=== PATIENT | female | born 1955 | race Caucasian/White ===

== ENCOUNTER 2022-10-27 11:34 | Observation (INO) ==
--- NOTE | 2022-10-27 12:44 | Emergency Department Note ---
History of Present Illness General Chief complaint: Altered Mental Status Stated complaint: STROKE ON 10/23, AMS, BP HIGH Time Seen by Provider: 10/27/22 12:21 Source: patient and family ([id number]-[id number] at bedside) History of Present Illness Provider complaint: Altered mental status 67-year-old female presents emergency department for altered mental status. Patient and nxwumcrv-cz-yhv reports that the patient was seen at [facility] on Monday and discharged with a stroke. She states that she was discharged yesterday. Daughter reports that since yesterday the patient has been having difficulty walking and slurred speech that is worse than when she had her initial stroke. The nslfhxtd-pp-mos also reports that the patient has been having some emotionally labile moments fluctuating between crying and acting like a child to being profusely loving and affectionate. No recent falls. No blood thinners. Home Medications Medication Instructions Recorded Confirmed Type amlodipine 2.5 mg tablet 2.5 mg PO BID 10/27/22 10/27/22 History atorvastatin 40 mg tablet 40 mg PO DAILY 10/27/22 10/27/22 History buspirone 10 mg tablet 10 mg PO BID 10/27/22 10/27/22 History cilostazol 50 mg tablet 100 mg PO BID 10/27/22 10/27/22 History clopidogrel 75 mg tablet (Plavix) 75 mg PO BID 10/27/22 10/27/22 History cyclobenzaprine 10 mg tablet 5 mg PO BID PRN Muscle Spasm 10/27/22 10/27/22 History losartan 50 mg tablet 50 mg PO DAILY 10/27/22 10/27/22 History metformin 1,000 mg tablet 1,000 mg PO BID 10/27/22 10/27/22 History metoprolol tartrate 25 mg tablet 25 mg PO BID 10/27/22 10/27/22 History pantoprazole 40 mg tablet,delayed 40 mg PO BID 10/27/22 10/27/22 History release venlafaxine 37.5 mg 37.5 mg PO DAILY 10/27/22 10/27/22 History capsule,extended release 24 hr Allergies Allergy/AdvReac Type Severity Reaction Status Date / Time Penicillins Allergy from Verified 10/27/22 15:56 childhood Past Med/Surg History Medical History (Updated 10/27/22 @ 16:20 by Conner Mulligan MD) CVA (cerebral vascular accident) HTN (hypertension) Stroke-like symptoms Social History Smoking Status: Former smoker Feels Safe at Home: Yes Physical Exam Vital Signs Vital Signs - 24 hr 10/27/22 11:43 10/27/22 12:03 10/27/22 11:59 Temperature 36.7 C Temperature Source Temporal Artery Scan Pulse Rate 100 H 97 H Pulse Rate [Apical] 93 H Pulse Rhythm [Apical] Regular Respiratory Rate 18 18 Respiratory Effort / Characteristics Non-Labored Spontaneous Non-Labored Spontaneous Respiratory Depth Normal Normal Respiratory Pattern Regular Regular Blood Pressure 140/82 Blood Pressure [Left Arm] 137/83 Blood Pressure Mean 101 Blood Pressure Mean [Left Arm] 101 Blood Pressure Position Sitting Blood Pressure Position [Left Arm] Lying Pulse Oximetry 99 96 Oxygen Delivery Method Room Air Room Air Sepsis Recent Fever Within 48 Hours No Sepsis New/Unexplained Change in Mental Status N/A Sepsis Action Taken by Nursing No Action Required 10/27/22 14:17 Temperature Temperature Source Pulse Rate Pulse Rate [Apical] 78 Pulse Rhythm [Apical] Respiratory Rate 18 Respiratory Effort / Characteristics Non-Labored Spontaneous Respiratory Depth Normal Respiratory Pattern Regular Blood Pressure Blood Pressure [Left Arm] 138/71 Blood Pressure Mean Blood Pressure Mean [Left Arm] 93 Blood Pressure Position Blood Pressure Position [Left Arm] Lying Pulse Oximetry 95 Oxygen Delivery Method Room Air Sepsis Recent Fever Within 48 Hours Sepsis New/Unexplained Change in Mental Status Sepsis Action Taken by Nursing Physical Exam GENERAL: oriented to person, place, and time. appears well-developed and well- nourished. HENT: Exam performed. - Head: Normocephalic and atraumatic. EYES: Conjunctivae and EOM are normal. Right eye exhibits no discharge. Left eye exhibits no discharge. No scleral icterus. NECK: Normal range of motion. Neck supple. No JVD present. CV: Normal rate, regular rhythm, normal heart sounds and intact distal pulses. There is no peripheral edema. Palpable radial pulses bue. PULM/CHEST: Effort normal and breath sounds normal. No respiratory distress. No stridor. no wheezes. no rales. ABD: The abdomen is soft. There is no tenderness. NEURO: Mild dysarthria. Mild left-sided facial droop. SKIN: Skin is warm and dry. He is not diaphoretic. PSYCH: normal mood and affect. Behavior is normal. Judgment and thought content normal. Course Course 1221: The patient was evaluated in room B8. A complete history and physical exam was performed Cardiac monitoring: An order was placed for continuous cardiac monitoring. The monitor shows a rate of 90 with sinus rhythm interpreted by me Upon exiting the room the patient's ruigvfuh-mb-gyb came to me and stated that she is concerned that the patient is not able to take care of herself at home and that she has not been properly taking her medications. The xcqnaxjp-nf-kiw states that her and her are concerned about her wellbeing at home by herself but the other daughters were not as concerned. The ajboqiah-zs-djt states that no neurologist was seen at the [facility] and that they did not do an MRI on her. Records request will be made to get the records from [facility]. 1350: Vital signs stable. Imaging showed no acute intracranial findings. James gann will be admitted to the [facility] team to be evaluated neurology, have possible MRI done, and possible placement given the son and agojpkyh-sk-tha at bedside's concerns. Medical Decision Making Laboratory Data Attestation: I reviewed the patient's lab results. 10/27/22 11:59 10/27/22 12:38 Lab Results 10/27/22 10/27/22 10/27/22 Range/Units 11:59 11:59 11:59 WBC 8.00 (4.8-10.8) K/ul RBC 4.55 (4.20-5.40) M/uL Hgb 15.0 (12.0-16.0) g/dl POC Hgb (12.0-16.0) g/dl Hct 42.4 (37.0-47.0) % POC Hct (37-47) % MCV 93.2 (80.0-100.0) fL MCH 33.0 (25.0-34.0) pg MCHC 35.4 (32.0-36.0) g/dL RDW Std Deviation 43.1 (36.4-46.3) fL RDW Coeff of Sherie 12.6 (11.5-14.5) % Plt Count 359 (130-400) K/uL MPV 9.5 (9.4-12.4) fL Immature Gran % (Auto) 0.4 % Neut % (Auto) 72.5 % Lymph % (Auto) 20.1 % [place] % (Auto) 6.1 % Eos % (Auto) 0.1 % Baso % (Auto) 0.8 % Neut # (Auto) 5.80 (1.40-6.50) K/uL Lymph # (Auto) 1.61 (1.2-3.4) K/uL [place] # (Auto) 0.49 (0.11-0.59) K/uL Eos # (Auto) 0.01 (0-0.50) K/uL Baso # (Auto) 0.06 (0-0.2) K/uL Immature Gran # (Auto) 0.03 (0.01-0.20) K/uL PT 10.4 (9.0-12.0) Seconds INR 0.9 (0.9-1.1) APTT 22.8 (21.0-31.0) Seconds PTT Ratio 0.8 VBG pH (7.36-7.41) VBG pCO2 (38-50) mmHg VBG pO2 mmHg VBG HCO3 mmol/L VBG O2 Saturation % VBG Base Excess mEq/L POC Sodium (135-144) mmol/L POC Potassium (3.3-5.0) mmol/L POC Chloride (101-112) mmol/L POC Total CO2 (24-31) mmol/L POC Anion Gap (16-25) mmol/L POC BUN (7-18) mg/dl POC Creatinine (0.6-1.3) mg/dl POC Glucose (70-99) mg/dl POC Glucose (other) (70-99) mg/dl POC Ioniz Calcium Ham[place] (1.12-1.32) mmol/l Ammonia (18-72) umol/L Troponin I High Sens (0-14) pg/ml Salicylates (3.0-30) mg/dl Acetaminophen < 3 L (10-30) ug/ml SARS-CoV-2, RNA, NAAT (NEGATIVE) 10/27/22 10/27/22 10/27/22 Range/Units 12:03 12:38 13:06 WBC (4.8-10.8) K/ul RBC (4.20-5.40) M/uL Hgb (12.0-16.0) g/dl POC Hgb (12.0-16.0) g/dl Hct (37.0-47.0) % POC Hct (37-47) % MCV (80.0-100.0) fL MCH (25.0-34.0) pg MCHC (32.0-36.0) g/dL RDW Std Deviation (36.4-46.3) fL RDW Coeff of Sherie (11.5-14.5) % Plt Count (130-400) K/uL MPV (9.4-12.4) fL Immature Gran % (Auto) % Neut % (Auto) % Lymph % (Auto) % [place] % (Auto) % Eos % (Auto) % Baso % (Auto) % Neut # (Auto) (1.40-6.50) K/uL Lymph # (Auto) (1.2-3.4) K/uL [place] # (Auto) (0.11-0.59) K/uL Eos # (Auto) (0-0.50) K/uL Baso # (Auto) (0-0.2) K/uL Immature Gran # (Auto) (0.01-0.20) K/uL PT (9.0-12.0) Seconds INR (0.9-1.1) APTT (21.0-31.0) Seconds PTT Ratio VBG pH (7.36-7.41) VBG pCO2 (38-50) mmHg VBG pO2 mmHg VBG HCO3 mmol/L VBG O2 Saturation % VBG Base Excess mEq/L POC Sodium (135-144) mmol/L POC Potassium (3.3-5.0) mmol/L POC Chloride (101-112) mmol/L POC Total CO2 (24-31) mmol/L POC Anion Gap (16-25) mmol/L POC BUN (7-18) mg/dl POC Creatinine (0.6-1.3) mg/dl POC Glucose 207 H (70-99) mg/dl POC Glucose (other) (70-99) mg/dl POC Ioniz Calcium [place] (1.12-1.32) mmol/l Ammonia 40.0 (18-72) umol/L Troponin I High Sens 8.4 (0-14) pg/ml Salicylates (3.0-30) mg/dl Acetaminophen (10-30) ug/ml SARS-CoV-2, RNA, NAAT (NEGATIVE) 10/27/22 10/27/22 10/27/22 Range/Units 13:06 13:49 14:03 WBC (4.8-10.8) K/ul RBC (4.20-5.40) M/uL Hgb (12.0-16.0) g/dl POC Hgb 20.1 H* (12.0-16.0) g/dl Hct (37.0-47.0) % POC Hct 59 H (37-47) % MCV (80.0-100.0) fL MCH (25.0-34.0) pg MCHC (32.0-36.0) g/dL RDW Std Deviation (36.4-46.3) fL RDW Coeff of Sherie (11.5-14.5) % Plt Count (130-400) K/uL MPV (9.4-12.4) fL Immature Gran % (Auto) % Neut % (Auto) % Lymph % (Auto) % [place] % (Auto) % Eos % (Auto) % Baso % (Auto) % Neut # (Auto) (1.40-6.50) K/uL Lymph # (Auto) (1.2-3.4) K/uL [place] # (Auto) (0.11-0.59) K/uL Eos # (Auto) (0-0.50) K/uL Baso # (Auto) (0-0.2) K/uL Immature Gran # (Auto) (0.01-0.20) K/uL PT (9.0-12.0) Seconds INR (0.9-1.1) APTT (21.0-31.0) Seconds PTT Ratio VBG pH 7.42 H (7.36-7.41) VBG pCO2 37 L (38-50) mmHg VBG pO2 52 mmHg VBG HCO3 24 mmol/L VBG O2 Saturation 86.6 % VBG Base Excess -0.2 mEq/L POC Sodium 140 (135-144) mmol/L POC Potassium 3.6 (3.3-5.0) mmol/L POC Chloride 101 (101-112) mmol/L POC Total CO2 21 L (24-31) mmol/L POC Anion Gap 23.0 (16-25) mmol/L POC BUN 10 (7-18) mg/dl POC Creatinine 0.5 L (0.6-1.3) mg/dl POC Glucose (70-99) mg/dl POC Glucose (other) 202 H (70-99) mg/dl POC Ioniz Calcium [place] 1.13 (1.12-1.32) mmol/l Ammonia (18-72) umol/L Troponin I High Sens (0-14) pg/ml Salicylates < 3.0 L (3.0-30) mg/dl Acetaminophen (10-30) ug/ml SARS-CoV-2, RNA, NAAT (NEGATIVE) 10/27/22 Range/Units 14:28 WBC (4.8-10.8) K/ul RBC (4.20-5.40) M/uL Hgb (12.0-16.0) g/dl POC Hgb (12.0-16.0) g/dl Hct (37.0-47.0) % POC Hct (37-47) % MCV (80.0-100.0) fL MCH (25.0-34.0) pg MCHC (32.0-36.0) g/dL RDW Std Deviation (36.4-46.3) fL RDW Coeff of Sherie (11.5-14.5) % Plt Count (130-400) K/uL MPV (9.4-12.4) fL Immature Gran % (Auto) % Neut % (Auto) % Lymph % (Auto) % [place] % (Auto) % Eos % (Auto) % Baso % (Auto) % Neut # (Auto) (1.40-6.50) K/uL Lymph # (Auto) (1.2-3.4) K/uL [place] # (Auto) (0.11-0.59) K/uL Eos # (Auto) (0-0.50) K/uL Baso # (Auto) (0-0.2) K/uL Immature Gran # (Auto) (0.01-0.20) K/uL PT (9.0-12.0) Seconds INR (0.9-1.1) APTT (21.0-31.0) Seconds PTT Ratio VBG pH (7.36-7.41) VBG pCO2 (38-50) mmHg VBG pO2 mmHg VBG HCO3 mmol/L VBG O2 Saturation % VBG Base Excess mEq/L POC Sodium (135-144) mmol/L POC Potassium (3.3-5.0) mmol/L POC Chloride (101-112) mmol/L POC Total CO2 (24-31) mmol/L POC Anion Gap (16-25) mmol/L POC BUN (7-18) mg/dl POC Creatinine (0.6-1.3) mg/dl POC Glucose (70-99) mg/dl POC Glucose (other) (70-99) mg/dl POC Ioniz Calcium [place] (1.12-1.32) mmol/l Ammonia (18-72) umol/L Troponin I High Sens (0-14) pg/ml Salicylates (3.0-30) mg/dl Acetaminophen (10-30) ug/ml SARS-CoV-2, RNA, NAAT NEGATIVE (NEGATIVE) Imaging Data Radiologist's Impression: Head CT 10/27/22 12:38 CT SCAN OF THE BRAIN WITHOUT IV CONTRAST CLINICAL HISTORY: Change in mental status. Reported history of recent stroke. COMPARISON STUDY: No priors. TECHNIQUE: Unenhanced axial CT scan of the brain is performed from the vertex to the skull base. A dose lowering technique was utilized adhering to the principles of ALARA. The skull base was scanned twice due to motion artifact. CT DOSE: 938.00 mGy.cm FINDINGS: Brain parenchyma: There is age-related involutional change noting moderate patchy subcortical and periventricular microangiopathic disease. There is no hemorrhage, mass effect, or evidence of acute territorial ischemia by CT criteria. There are low-attenuation foci within the left basal ganglia and the right thalamus consistent with age indeterminant lacunar infarcts. Ferraro-white matter differentiation is preserved. No extra-axial fluid collection is seen. Ventricles, sulci, cisterns: Prominent secondary to involutional change. Intracranial vasculature: There is atherosclerotic calcification of the cavernous carotid arteries. Calvarium: Unremarkable. Sinuses and mastoids: The visualized paranasal sinuses are clear. The mastoid air cells are well pneumatized. Orbits: The bony orbits are grossly intact. IMPRESSION: 1. There is no hemorrhage, mass effect, or evidence of acute territorial ischemia by CT criteria. 2. There are low-attenuation foci within the left basal ganglia and the right thalamus consistent with age-indeterminate lacunar infarcts. Correlate with any prior outside imaging studies. ACT 112: Negative or not required by law. Electronically signed by: Asher Valdivia M.D. 10/27/2022 1:23 PM ECG Data Attestation: I personally reviewed and interpreted this ECG as follows: Rate (beats per minute): 95 Rhythm: + normal sinus ECG Intervals/blocks: + Normal QRS, + Normal [place] and + Normal QT-c ECG ST segments: + Normal ST segments MDM Narrative 1221: The patient was evaluated in room B8. A complete history and physical exam was performed Cardiac monitoring: An order was placed for continuous cardiac monitoring. The monitor shows a rate of 90 with sinus rhythm interpreted by me Upon exiting the room the patient's cxzadymr-am-bzv came to me and stated that she is concerned that the patient is not able to take care of herself at home and that she has not been properly taking her medications. The qfeifwtw-gn-zab states that her and her are concerned about her wellbeing at home by herself but the other daughters were not as concerned. The rorlqygt-au-rkw states that no neurologist was seen at the [facility] and that they did not do an MRI on her. Records request will be made to get the records from [facility]. 1350: Vital signs stable. Imaging showed no acute intracranial findings. Patient will be admitted to the [facility] team to be evaluated neurology, have possible MRI done, and possible placement given the son and snqrsstw-kp-ezg at bedside's concerns. Impression & Plan Stroke-like symptoms, HTN (hypertension) Discharge Plan Visit Data Chief Complaint: Altered Mental Status Stated Complaint: STROKE ON 10/23, AMS, BP HIGH ED Provider: Conner Mulligan Discharge Problem: Stroke-like symptoms, HTN (hypertension) Patient Disposition: Being Evaluated by Hospitalist Forms Stand Alone Forms: [employer] Prescriptions Prescriptions: No Action losartan 50 mg tablet 50 mg PO DAILY Rx Instructions: PER [facility] cyclobenzaprine 10 mg tablet 5 mg PO BID PRN (Reason: Muscle Spasm) atorvastatin 40 mg tablet 40 mg PO DAILY cilostazol 50 mg tablet 100 mg PO BID amlodipine 2.5 mg tablet 2.5 mg PO BID Rx Instructions: PER [facility] clopidogrel [Plavix] 75 mg tablet 75 mg PO BID Rx Instructions: PER [facility] pantoprazole 40 mg tablet,delayed release (DR/EC) 40 mg PO BID Rx Instructions: PER [facility] metformin 1,000 mg tablet 1,000 mg PO BID Rx Instructions: PER [facility] buspirone 10 mg tablet 10 mg PO BID metoprolol tartrate 25 mg tablet 25 mg PO BID Rx Instructions: PER [facility] venlafaxine 37.5 mg capsule,extended release 24hr 37.5 mg PO DAILY Rx Instructions: Patient states this dose. Referrals Referrals: PCP,NO [Physician] -
[2022-10-27 12:55] LABS: Basophils # (auto) 0.06 K/uL (0-0.2); Basophils % (auto) 0.8 %; Eosinophils # (auto) 0.01 K/uL (0-0.50); Eosinophils % (auto) 0.1 %; Hematocrit (blood only) 42.4 % (37.0-47.0); Immature Granulocytes # (auto) 0.03 K/uL (0.01-0.20); Immature Granulocytes % (auto) 0.4 %; Lymphocytes # (auto) 1.61 K/uL (1.2-3.4); Lymphocytes % (auto) 20.1 %; Mean Corpuscular Hgb Conc 35.4 g/dL (32.0-36.0); Mean Corpuscular Volume 93.2 fL (80.0-100.0); Mean Platelet Volume 9.5 fL (9.4-12.4); Monocytes # (auto) 0.49 K/uL (0.11-0.59); Monocytes % (auto) 6.1 %; Neutrophils % (auto) 72.5 %; Platelet Count 359 K/uL (130-400); RDW Coefficient of Variation 12.6 % (11.5-14.5); RDW Standard Deviation 43.1 fL (36.4-46.3); Red Blood Count 4.55 M/uL (4.20-5.40)
[2022-10-27 13:12] LABS: INR 0.9 (0.9-1.1); Partial Thromboplastin Ratio 0.8; Partial Thromboplastin Time 22.8 Seconds (21.0-31.0); Prothrombin Time 10.4 Seconds (9.0-12.0)
--- NOTE | 2022-10-27 13:24 | CT Scan Report ---
CT SCAN OF THE BRAIN WITHOUT IV CONTRAST CLINICAL HISTORY: Change in mental status. Reported history of recent stroke. COMPARISON STUDY: No priors. TECHNIQUE: Unenhanced axial CT scan of the brain is performed from the vertex to the skull base. A do se lowering technique was utilized adhering to the principles of ALARA. The skull base was scanned tw ice due to motion artifact. CT DOSE: 938.00 mGy.cm FINDINGS: Brain parenchyma: There is age-related involutional change noting moderate patchy subcortical and per iventricular microangiopathic disease. There is no hemorrhage, mass effect, or evidence of acute terr itorial ischemia by CT criteria. There are low-attenuation foci within the left basal ganglia and the right thalamus consistent with age indeterminant lacunar infarcts. Ferraro-white matter differentiation is preserved. No extra-axial fluid collection is seen. Ventricles, sulci, cisterns: Prominent secondary to involutional change. Intracranial vasculature: There is atherosclerotic calcification of the cavernous carotid arteries. Calvarium: Unremarkable. Sinuses and mastoids: The visualized paranasal sinuses are clear. The mastoid air cells are well pneu matized. Orbits: The bony orbits are grossly intact. IMPRESSION: 1. There is no hemorrhage, mass effect, or evidence of acute territorial ischemia by CT criteria. 2. There are low-attenuation foci within the left basal ganglia and the right thalamus consistent wit h age-indeterminate lacunar infarcts. Correlate with any prior outside imaging studies. ACT 112: Negative or not required by law. Electronically signed by: Asher Valdivia M.D. 10/27/2022 1:23 PM
[2022-10-27 13:28] LABS: Base Excess VBG -0.2 mEq/L; HCO3 VBG 24 mmol/L; Oxygen Saturation VBG 86.6 %; PCO2 VBG 37 mmHg (38-50); PO2 VBG 52 mmHg; pH VBG 7.42 (7.36-7.41)
[2022-10-27 13:33] LABS: Troponin I High Sensitivity 8.4 pg/ml (0-14)
[2022-10-27 14:02] LABS: iSTAT Creatinine 0.5 mg/dl (0.6-1.3); iSTAT Hemoglobin 20.1 g/dl (12.0-16.0); iSTAT Ionized Calcium 1.13 mmol/l (1.12-1.32); iSTAT Potassium 3.6 mmol/L (3.3-5.0)
[2022-10-27] MEDS ORDERED: ONDANSETRON INJ 2 MG/ML 2 ML VIAL IV PRN (14:34)
[2022-10-27] MEDS ORDERED: MAGNESIUM HYDROXIDE SUSP 30 ML UDC PO PRN (14:34)
[2022-10-27] MEDS ORDERED: POLYETHYLENE (MIRALAX) 17 GM PACK PO PRN (14:34)
[2022-10-27] MEDS ORDERED: ALUMINUM/MAGNESIUM SUSP 30 ML UDC PO PRN (14:34)
[2022-10-27] MEDS ORDERED: ACETAMINOPHEN 325 MG TAB PO PRN (14:34)
--- NOTE | 2022-10-27 14:39 | History & Physical Report ---
Date of Service October 27, 2022 Assessment & Plan (1) Stroke-like symptoms: (2) History of CVA (cerebrovascular accident): (3) HTN (hypertension): (4) DM2 (diabetes mellitus, type 2): Plan 67 year old presents with CVA like symptoms; expressive aphasia, slurred speech, labile mood. admit at [facility] and Dx with CVA but no MRI or neuro consult done there. MRI pending. ON plavix and Atorva from previous CVA Dx 2018. Non insulin dependent DM, Hold anti-HTN meds for permissive HTN for now. PT/OT/ST. Strokelike symptoms: History of CVA: History of stroke 2018 inpatient hospital stay [facility]; requested records through H IM Seen at [facility] on Monday 10/23 did not receive MRI but CT suggested stroke no neuro consult at that time Worsening increased weakness and ataxia with mood labile Head CT:There are low-attenuation foci within the left basal ganglia and the right thalamus consistent with age-indeterminate lacunar infarcts. On Plavix for previous stroke and atorvastatin 40 mg p.o. daily anticipate increase to high-dose MRI ordered and pending; 0.5 mg Ativan for claustrophobia Neurology consult placed PT/OT Dysphagia screen; n.p.o. until cleared Speech therapy consult Case management for complex discharge needs; possible placement HTN: Takes losartan, amlodipine, and metoprolol; hold to allow permissive HTN [id number] diabetes mellitus type 2: Takes metformin; hold Placed on FSBS ACHS SSI while inpatient Check A1c while here Depression and anxiety: Takes buspirone; continue Takes venlafaxine; continue GERD: Takes pantoprazole; continue Disposition: PCP: Dr. Mario Code Status: Full Code VTE Prophylaxis: Teds and SCDs for now I spent a total of 88 minutes coordinating, documenting, and providing care for this patient excluding time spent in the performance of separately billed services. All of the aforementioned completed while collaborating with the assigned attending physician for a full treatment plan. Please see their addendum for further details. History of Present Illness Chief Complaint: [facility] Primary Care Provider: Bebo Mario Ms. Farooq is a 67-year-old female that presented to the ED today after her family stated that she was experiencing visual disturbance along with slurred speech and expressive aphasia. Patient was seen at the [facility] on MondayOctober 23 and was reportedly diagnosed with a stroke. No MRI was performed there due to claustrophobia and she was reportedly not evaluated by her neurologist. Since she was discharged her weakness has increased along with ataxia and her emotional status has become more labile where she can be affectionate one minute and very aggressive the next. Past medical history includes history of CVA diagnosed 2018 at [facility] (takes Plavix), HTN, BPH, and [id number] DM2. Head CT here showed low-attenuation foci within the left basal ganglia and the right thalamus consistent with age-indeterminate lacunar infarcts. Patient denies headache, dizziness, chest pain, palpitations, abdominal pain, recent sickness exposure recent falls or trauma. Patient sitting in her hospital bed and able to have communication but does experience expressive aphasia. Patient has equal strength upper extremity and lower extremity. Patient does have right-sided facial droop which the patient's family expresses has been present since her stroke in 2017 but does seem a little worse since Monday. CN II-XII grossly intact. Patient will be admitted for further evaluation and management. Please see A/P for further details. Allergies Allergy/AdvReac Type Severity Reaction Status Date / Time Penicillins Allergy from Verified 10/27/22 15:56 childhood Home Medications Medication Instructions Recorded Confirmed Type amlodipine 2.5 mg tablet 2.5 mg PO BID 10/27/22 10/27/22 History atorvastatin 40 mg tablet 40 mg PO DAILY 10/27/22 10/27/22 History buspirone 10 mg tablet 10 mg PO BID 10/27/22 10/27/22 History cilostazol 50 mg tablet 100 mg PO BID 10/27/22 10/27/22 History clopidogrel 75 mg tablet (Plavix) 75 mg PO BID 10/27/22 10/27/22 History cyclobenzaprine 10 mg tablet 5 mg PO BID PRN Muscle Spasm 10/27/22 10/27/22 History losartan 50 mg tablet 50 mg PO DAILY 10/27/22 10/27/22 History metformin 1,000 mg tablet 1,000 mg PO BID 10/27/22 10/27/22 History metoprolol tartrate 25 mg tablet 25 mg PO BID 10/27/22 10/27/22 History pantoprazole 40 mg tablet,delayed 40 mg PO BID 10/27/22 10/27/22 History release venlafaxine 37.5 mg 37.5 mg PO DAILY 10/27/22 10/27/22 History capsule,extended release 24 hr Past Med/Surg History Medical History (Updated 10/27/22 @ 17:25 by TAYLOR Nieto) CVA (cerebral vascular accident) DM2 (diabetes mellitus, type 2) History of CVA (cerebrovascular accident) HTN (hypertension) Stroke-like symptoms Surgical History (Updated 10/27/22 @ 17:23 by TAYLOR Nieto) No pertinent past surgical history Family History (Updated 10/27/22 @ 17:24 by TAYLOR Nieto) Other Dementia Diabetes Stroke Social History (Updated 10/27/22 @ 17:25 by TAYLOR Nieto) Smoking Status: Former smoker Hx Alcohol Use: No Hx Substance Use: No Feels Safe at Home: Yes Review of Systems Review of Systems: Neuro: (-) Falls, trauma, slurred speech HEENT: (-) [place], dizziness, (+) dysphagia, visual or auditory changes CV: (-) CP, palpitations, swelling Resp: (-) SOB GI: (-) appetite changes, N/V/D, bowel changes : (-) urinary changes Skin: (-) rashes Psych: (-) anxiety, depression Physical Exam Physical Exam: Neuro: AAOx4, PERRLA, no aphagia, memory changes, CNII-XII grossly intact HEENT: head normocephalic, moist mucus membranes CV: S1/S2, (-) M/G/R, (-) edema, cap refill < 3 seconds Resp: Lungs CTA in all [place]. On RA GI: Abdomen S/NT/ND, Ax4 bowel sounds, (-) CVA tenderness Musculoskeletal: 5/5 B/L UE strength, 5/5 B/L LE strength. No gait disturbance Skin: (-) rashes , (-) erythema. Psych:labile mood Results & Data Results & Data Vital Signs (Past 12 Hours) Vital Signs Temp Pulse Pulse Resp BP BP Pulse Ox 10/27/22 14:17 78 18 138/71 95 10/27/22 11:59 97 H 10/27/22 12:03 93 H 18 137/83 96 10/27/22 11:43 36.7 C 100 H 18 140/82 99 O2 Del Method 10/27/22 14:17 Room Air 10/27/22 11:59 10/27/22 12:03 Room Air 10/27/22 11:43 Room Air Laboratory Results Short CBC 10/27/22 Range/Units 11:59 WBC 8.00 (4.8-10.8) K/ul Hgb 15.0 (12.0-16.0) g/dl Hct 42.4 (37.0-47.0) % Plt Count 359 (130-400) K/uL Diagnostic Findings Head CT 10/27/22 12:38 CT SCAN OF THE BRAIN WITHOUT IV CONTRAST CLINICAL HISTORY: Change in mental status. Reported history of recent stroke. COMPARISON STUDY: No priors. TECHNIQUE: Unenhanced axial CT scan of the brain is performed from the vertex to the skull base. A dose lowering technique was utilized adhering to the principles of ALARA. The skull base was scanned twice due to motion artifact. CT DOSE: 938.00 mGy.cm FINDINGS: Brain parenchyma: There is age-related involutional change noting moderate patchy subcortical and periventricular microangiopathic disease. There is no hemorrhage, mass effect, or evidence of acute territorial ischemia by CT criteria. There are low-attenuation foci within the left basal ganglia and the right thalamus consistent with age indeterminant lacunar infarcts. Ferraro-white matter differentiation is preserved. No extra-axial fluid collection is seen. Ventricles, sulci, cisterns: Prominent secondary to involutional change. Intracranial vasculature: There is atherosclerotic calcification of the cavernous carotid arteries. Calvarium: Unremarkable. Sinuses and mastoids: The visualized paranasal sinuses are clear. The mastoid air cells are well pneumatized. Orbits: The bony orbits are grossly intact. IMPRESSION: 1. There is no hemorrhage, mass effect, or evidence of acute territorial ischemia by CT criteria. 2. There are low-attenuation foci within the left basal ganglia and the right thalamus consistent with age-indeterminate lacunar infarcts. Correlate with any prior outside imaging studies. ACT 112: Negative or not required by law. Electronically signed by: Asher Valdivia M.D. 10/27/2022 1:23 PM Code Status & VTE Plan Code Status Full Code in the event of cardiac or respiratory arrest VTE Prophylaxis Plan VTE Prophylaxis will be ordered: Yes Supervising Physician Co-Signing Physician Notes 67 year old presents with CVA like symptoms; expressive aphasia, slurred speech, labile mood. Mri brain ordered neuro consult ordered exam Neuro: AAOx4, PERRLA, no aphasia, HEENT: head normocephalic, moist mucus membranes CV: S1/S2, (-) M/G/R, (-) edema, cap refill < 3 seconds Resp: Lungs CTA in all [place]. On RA GI: Abdomen S/NT/ND, Ax4 bowel sounds, (-) CVA tenderness Musculoskeletal: 5/5 B/L UE strength, 5/5 B/L LE strength. No gait disturbance Skin: (-) rashes , (-) erythema. Psych:labile mood
[2022-10-27] MEDS ORDERED: Patient's HEIGHT &/or WEIGHT Needed SCH (14:45)
[2022-10-27] MEDS ORDERED: LORazepam 0.5 MG TAB PO STA (16:14)
[2022-10-27 16:23] LABS: Appearance Urine Turbid (Clear); Bacteria Urine Automated Negative (Negative); Bilirubin Urine Negative (Negative); Blood Urine Trace (Negative); Color Urine Dark Yellow; Glucose Urine UA Negative (Negative); Ketones Urine Trace (Negative); Leukocyte Esterase Urine Negative (Negative); Nitrite Urine Negative (Negative); Protein Urine Negative (Negative); RBC Urine Automated 0-4 /hpf (0-4); Specific Gravity Urine 1.027 (1.000-1.030); Urobilinogen Urine Negative (Negative)
[2022-10-27 16:29] LABS: Calcium 9.8 mg/dl (8.6-10.3); Magnesium 1.7 mg/dl (1.7-2.4); Potassium 3.6 mmol/L (3.5-5.1)
[2022-10-27 16:34] LABS: BUN Creatinine Ratio 16.4 (10-20); Est GFR (African American) 104.7 ml/min; Est GFR (Non-African American) 90.3 ml/min
[2022-10-27 16:36] LABS: Amorphous Sediment Urine Present (None Prsent)
[2022-10-27] MEDS ORDERED: DEXTROSE 50% 50 ML SYRINGE IV PRN (17:35)
[2022-10-27] MEDS ORDERED: PHARMACY GLYCEMIC MGMT CONSULT PRN (17:35)
[2022-10-27] MEDS ORDERED: GLUCOSE 10 TAB/TUBE PO PRN (17:35)
[2022-10-27] MEDS ORDERED: GLUCAGON FOR INJ 1 MG VIAL SQ PRN (17:35)
[2022-10-27] MEDS ORDERED: GLUCOSE 40% GEL 15 GM TUBE PO PRN (17:35)
[2022-10-27] MEDS ORDERED: CARBOHYDRATES FOR HYPOGLYCEMIA PO PRN (17:35)
[2022-10-27] MEDS ORDERED: GADOBUTROL 65ML VIAL IV ONE (19:01)
--- NOTE | 2022-10-27 19:13 | Magnetic Resonance Report ---
MRI OF THE BRAIN COMBO CLINICAL HISTORY: Change in mental status. Reported history of recent stroke. COMPARISON STUDY: CT of the brain performed the same day 10/27/2022 TECHNIQUE: MRI of the brain was performed utilizing various T1 and T2-weighted sequences in the axial , sagittal, and coronal planes. Contrast-enhanced sequences were acquired following the administratio n of 11 cc of Gadavist. FINDINGS: Brain parenchyma: There is a 12 mm focus of restricted diffusion in the left basal ganglia. This is c onsistent with an acute to subacute lacunar infarct. No additional foci of restricted diffusion are s een. There is no hemorrhage or mass effect. No enhancing mass lesion is identified on the postcontras t images. There is age-related involutional change noting moderate to advanced patchy subcortical and periventricular microangiopathic disease. No extra-axial fluid collection is seen. The cerebellar to nsils are normal in configuration. Ventricles, sulci, and cisterns: Prominent secondary to involutional change. Pituitary and sella: Partially empty sella is incidentally noted. Intracranial vasculature: Normal flow voids are maintained at the skull base. Orbits: The bony orbits are grossly intact. Orbital contents are normal in appearance. Sinuses and mastoids: The paranasal sinuses are clear. There are left larger than right mastoid effus ion. Calvarium: Unremarkable. Cervical cord: Partially visualized cervical spinal cord is normal in morphology and signal intensity . IMPRESSION: 1. Acute to subacute lacunar infarct in the left basal ganglia as above. 2. No additional foci of acute ischemia are identified. 3. There is no hemorrhage or mass effect. ACT 112: Negative or not required by law. Electronically signed by: Asher Valdivia M.D. 10/27/2022 7:11 PM
[2022-10-27] MEDS ORDERED: INSULIN ASPART PER UNIT CHARGE SC SCH (20:00)
[2022-10-27] MEDS: INSULIN ASPART PER UNIT CHARGE SC SCH (20:48)
[2022-10-27] MEDS ORDERED: amLODIPine BESYLATE 5 MG TAB PO SCH (21:00)
[2022-10-27] MEDS ORDERED: LANTUS PER UNIT CHARGE SQ SCH (21:00)
[2022-10-27] MEDS: busPIRone 5 MG TAB PO SCH (22:32)
[2022-10-27] MEDS: PANTOprazole 40 MG TAB PO SCH (22:33)
[2022-10-27] MEDS: cilostazoL 100 MG TAB PO SCH (22:33)
[2022-10-28] MEDS: INSULIN ASPART PER UNIT CHARGE SC SCH ×5 (00:17→20:43)
[2022-10-28] MEDS: ALBUTEROL HFA 8 GM INHALER INH SCH ×5 (01:29→19:29)
[2022-10-28 06:24] LABS: Hematocrit (blood only) 37.9 % (37.0-47.0); Hemoglobin 13.7 g/dl (12.0-16.0); Mean Corpuscular Hgb Conc 36.1 g/dL (32.0-36.0); Mean Corpuscular Volume 91.3 fL (80.0-100.0); Mean Platelet Volume 9.3 fL (9.4-12.4); Platelet Count 301 K/uL (130-400); RDW Coefficient of Variation 12.6 % (11.5-14.5); RDW Standard Deviation 41.9 fL (36.4-46.3); Red Blood Count 4.15 M/uL (4.20-5.40); White Blood Count 7.24 K/ul (4.8-10.8)
[2022-10-28 06:40] LABS: Albumin Globulin Ratio 1.6 (0.9-2); Albumin Level 4.1 gm/dl (3.4-5.0); BUN Creatinine Ratio 23.6 (10-20); Bilirubin,Total 0.5 mg/dl (0.2-1.0); Calcium 9.1 mg/dl (8.6-10.3); Creatinine Clr Calc Pharmacy 118.1 ml/min; Est GFR (African American) 111.7 ml/min; Est GFR (Non-African American) 96.4 ml/min; Globulin 2.5 gm/dl (2.5-4.0); Magnesium 1.8 mg/dl (1.7-2.4); Potassium 3.4 mmol/L (3.5-5.1); Total Protein 6.6 gm/dl (6.0-8.3)
[2022-10-28] MEDS: CLOPIDOGREL BISULFATE 75 MG TAB PO SCH (08:28)
[2022-10-28] MEDS: cilostazoL 100 MG TAB PO SCH ×2 (08:28→22:00)
[2022-10-28] MEDS: VENLAFAXINE HCL XR 37.5 MG CAPXR PO SCH (08:28)
[2022-10-28] MEDS: PANTOprazole 40 MG TAB PO SCH ×2 (08:28→22:00)
[2022-10-28] MEDS: busPIRone 5 MG TAB PO SCH ×2 (08:28→22:00)
[2022-10-28] MEDS: ATORVASTATIN 40 MG TAB PO SCH (08:29)
--- NOTE | 2022-10-28 08:50 | Hospitalist Progress Note ---
Date of Service October 28, 2022 Assessment & Plan (1) Stroke-like symptoms: (2) History of CVA (cerebrovascular accident): (3) HTN (hypertension): (4) DM2 (diabetes mellitus, type 2): Plan 67 year old presents with CVA like symptoms; expressive aphasia, slurred speech, labile mood. admit at [facility] and Dx with CVA but no MRI or neuro consult done there. MRI pending. ON plavix and Atorva from previous CVA Dx 2018. Non insulin dependent DM, Hold anti-HTN meds for permissive HTN for now. PT/OT/ST. Strokelike symptoms: History of CVA: History of stroke 2018 inpatient hospital stay [facility]; requested records through H IM Seen at [facility] on Monday 10/23 did not receive MRI but CT suggested stroke no neuro consult at that time Worsening increased weakness and ataxia with mood labile Head CT:There are low-attenuation foci within the left basal ganglia and the right thalamus consistent with age-indeterminate lacunar infarcts. On Plavix, asa for previous stroke and atorvastatin 40 mg p.o. daily MRI brain - 1. Acute to subacute lacunar infarct in the left basal ganglia. 2. No additional foci of acute ischemia are identified. 3. There is no hemorrhage or mass effect. Neurology consult placed PT/OT Dysphagia screen; n.p.o. until cleared Speech therapy consult Case management for complex discharge needs; possible placement 10/28 -records from [facility] obtained and reviewed. Patient had CTA head and neck done there. Echo with bubble study not obtained, as patient wanted to be discharged home and get this test done as outpatient. Echo with bubble study ordered. CTA head per reviewed records, findings: Left vertebral artery is dominant. Basilar and bilateral internal carotid arteries are patent. The bilateral middle cerebral, anterior cerebral and posterior cerebral arteries are patent. No significant stenosis, occlusion or saccular aneurysm. Impression: No significant stenosis, occlusion or saccular aneurysm. CTA neck. Reviewed records. Findings: There is a three-vessel arch. The origin of the arch vessels are widely patent. The common carotid arteries are patent. There is calcified plaque formation of the bilateral carotid bulbs and proximal internal carotid arteries. There is less than 25% stenosis bilaterally. No occlusion. Bilateral vertebral arteries are patent. Left vertebral artery is dominant. There are degenerative changes of the cervical spine. Lungs apices are clear. Impression: Calcified plaque formation of the bilateral carotid bulbs and proximal internal carotid arteries with less than 25% stenosis bilaterally. HTN: Cont. losartan, amlodipine, and metoprolol [id number] diabetes mellitus type 2: Takes metformin; hold Placed on FSBS ACHS SSI while inpatient A1c 6.7% Depression and anxiety: Takes buspirone; continue Takes venlafaxine; continue GERD: Takes pantoprazole; continue Disposition: PCP: Dr. Mario Code Status: Full Code VTE Prophylaxis: Teds and SCDs for now Admission and Anticipated Discharge Date Admission Date: October 27, 2022 Subjective Pt seen in follow up of CVA Currently sitting up in bed, in no acute distress Overall feels well, she is moving extremities, she is not confused, however has some speech difficulty No fevers chills chest pain shortness of breath, no abdominal pain Obtained records from [facility], and reviewed. CT head and neck was done there. Echo with bubble study was not done as patient wanted to leave and get this done as outpatient. Echo with bubble study ordered. Paperwork for HH signed, CM involved Review of Systems Review of Systems: All systems reviewed & are unremarkable except as noted in Subjective Physical Exam Physical Exam: General: obese F in NAD HEENT: head normocephalic, mo ist mucus membrane s CV: S1/S2, (-) M /G/R, (-) edema Re sp: Lungs CTA in a ll [place]. On RA G I: Abdomen S/NT/ND , Ax4 bowel sounds , (-) CVA tenderne ss Musculoskeletal : moves extremitie s Neuro: awake matthew rt oriented, PERRL ,+ mild expressive aphasia, + mild d ysarthria, moves e xtremities Skin: ( -) rashes , (-) er ythema. Results & Data Results & Data Vital Signs (Past 12 Hours) Vital Signs Temp Pulse Pulse Pulse Resp BP Pulse Ox 10/28/22 07:41 36.4 C L 100 H 19 134/87 94 10/28/22 07:09 119 H 18 98 10/28/22 04:00 36.6 C 95 H 18 139/76 94 10/27/22 22:04 97 H 10/27/22 21:56 10/27/22 23:00 36.6 C 98 H 18 135/89 96 O2 Del Method 10/28/22 07:41 Room Air 10/28/22 07:09 Room Air 10/28/22 04:00 Room Air 10/27/22 22:04 10/27/22 21:56 Room Air 10/27/22 23:00 Room Air Laboratory Results 10/28/22 10/28/22 10/28/22 Range/Units 06:04 06:04 06:04 WBC 7.24 (4.8-10.8) K/ul RBC 4.15 L (4.20-5.40) M/uL Hgb 13.7 (12.0-16.0) g/dl POC Hgb (12.0-16.0) g/dl Hct 37.9 (37.0-47.0) % POC Hct (37-47) % MCV 91.3 (80.0-100.0) fL MCH 33.0 (25.0-34.0) pg MCHC 36.1 H (32.0-36.0) g/dL RDW Std Deviation 41.9 (36.4-46.3) fL RDW Coeff of Sherie 12.6 (11.5-14.5) % Plt Count 301 (130-400) K/uL MPV 9.3 L (9.4-12.4) fL Immature Gran % (Auto) % Neut % (Auto) % Lymph % (Auto) % Adams % (Auto) % Eos % (Auto) % Baso % (Auto) % Neut # (Auto) (1.40-6.50) K/uL Lymph # (Auto) (1.2-3.4) K/uL Adams # (Auto) (0.11-0.59) K/uL Eos # (Auto) (0-0.50) K/uL Baso # (Auto) (0-0.2) K/uL Immature Gran # (Auto) (0.01-0.20) K/uL PT (9.0-12.0) Seconds INR (0.9-1.1) APTT (21.0-31.0) Seconds PTT Ratio VBG pH (7.36-7.41) VBG pCO2 (38-50) mmHg VBG pO2 mmHg VBG HCO3 mmol/L VBG O2 Saturation % VBG Base Excess mEq/L POC Sodium (135-144) mmol/L Sodium 138 (136-145) mmol/L POC Potassium (3.3-5.0) mmol/L Potassium 3.4 L (3.5-5.1) mmol/L POC Chloride (101-112) mmol/L Chloride 105 (98-107) mmol/L Carbon Dioxide 25 (21-32) mmol/L POC Total CO2 (24-31) mmol/L Anion Gap 8 (3-11) POC Anion Gap (16-25) mmol/L POC BUN (7-18) mg/dl BUN 13 (6-23) mg/dl Creatinine 0.55 L (0.6-1.2) mg/dl POC Creatinine (0.6-1.3) mg/dl Est Cr Clr Drug Dosing 118.1 ml/min Est GFR ( Amer) 111.7 ml/min Est GFR (Non-Af Amer) 96.4 ml/min BUN/Creatinine Ratio 23.6 H (10-20) Glucose 143 H (70-99(Fasting)) mg/dl POC Glucose (70-99) mg/dl POC Glucose (other) (70-99) mg/dl Estimat Average Glucose Pending Hemoglobin A1c Pending Lactate (0.4-2.0) mmol/L Calcium 9.1 (8.6-10.3) mg/dl POC Ioniz Calcium Hamida (1.12-1.32) mmol/l Magnesium 1.8 (1.7-2.4) mg/dl Total Bilirubin 0.5 (0.2-1.0) mg/dl AST 21 (13-39) U/L ALT 23 (7-52) U/L Alkaline Phosphatase 53 (34-104) U/L Ammonia (18-72) umol/L Troponin I High Sens (0-14) pg/ml Total Protein 6.6 (6.0-8.3) gm/dl Albumin 4.1 (3.4-5.0) gm/dl Globulin 2.5 (2.5-4.0) gm/dl Albumin/Globulin Ratio 1.6 (0.9-2) Lipase (11-82) U/L Urine Color Urine Appearance (Clear) Urine pH (4.5-7.5) Ur Specific [place] (1.000-1.030) Urine Protein (Negative) Urine Glucose (UA) (Negative) Urine Ketones (Negative) Urine Blood (Negative) Urine Nitrite (Negative) Urine Bilirubin (Negative) Urine Urobilinogen (Negative) Ur Leukocyte Esterase (Negative) Urine WBC (Auto) (0-5) /hpf Urine RBC (Auto) (0-4) /hpf U Hyaline Cast (Auto) (0-5) /lpf U Epithel Cells (Auto) (0-5) /lpf Urine Bacteria (Auto) (Negative) Urine Crystals (None Prsent) Amorphous Sediment (None Prsent) Salicylates (3.0-30) mg/dl Acetaminophen (10-30) ug/ml SARS-CoV-2, RNA, NAAT (NEGATIVE) 10/28/22 10/28/22 10/27/22 Range/Units 05:52 00:06 20:46 WBC (4.8-10.8) K/ul RBC (4.20-5.40) M/uL Hgb (12.0-16.0) g/dl POC Hgb (12.0-16.0) g/dl Hct (37.0-47.0) % POC Hct (37-47) % MCV (80.0-100.0) fL MCH (25.0-34.0) pg MCHC (32.0-36.0) g/dL RDW Std Deviation (36.4-46.3) fL RDW Coeff of Sherie (11.5-14.5) % Plt Count (130-400) K/uL MPV (9.4-12.4) fL Immature Gran % (Auto) % Neut % (Auto) % Lymph % (Auto) % Adams % (Auto) % Eos % (Auto) % Baso % (Auto) % Neut # (Auto) (1.40-6.50) K/uL Lymph # (Auto) (1.2-3.4) K/uL Adams # (Auto) (0.11-0.59) K/uL Eos # (Auto) (0-0.50) K/uL Baso # (Auto) (0-0.2) K/uL Immature Gran # (Auto) (0.01-0.20) K/uL PT (9.0-12.0) Seconds INR (0.9-1.1) APTT (21.0-31.0) Seconds PTT Ratio VBG pH (7.36-7.41) VBG pCO2 (38-50) mmHg VBG pO2 mmHg VBG HCO3 mmol/L VBG O2 Saturation % VBG Base Excess mEq/L POC Sodium (135-144) mmol/L Sodium (136-145) mmol/L POC Potassium (3.3-5.0) mmol/L Potassium (3.5-5.1) mmol/L POC Chloride (101-112) mmol/L Chloride (98-107) mmol/L Carbon Dioxide (21-32) mmol/L POC Total CO2 (24-31) mmol/L Anion Gap (3-11) POC Anion Gap (16-25) mmol/L POC BUN (7-18) mg/dl BUN (6-23) mg/dl Creatinine (0.6-1.2) mg/dl POC Creatinine (0.6-1.3) mg/dl Est Cr Clr Drug Dosing ml/min Est GFR ( Amer) ml/min Est GFR (Non-Af Amer) ml/min BUN/Creatinine Ratio (10-20) Glucose (70-99(Fasting)) mg/dl POC Glucose 132 H 167 H 130 H (70-99) mg/dl POC Glucose (other) (70-99) mg/dl Estimat Average Glucose Hemoglobin A1c Lactate (0.4-2.0) mmol/L Calcium (8.6-10.3) mg/dl POC Ioniz Calcium Hamida (1.12-1.32) mmol/l Magnesium (1.7-2.4) mg/dl Total Bilirubin (0.2-1.0) mg/dl AST (13-39) U/L ALT (7-52) U/L Alkaline Phosphatase (34-104) U/L Ammonia (18-72) umol/L Troponin I High Sens (0-14) pg/ml Total Protein (6.0-8.3) gm/dl Albumin (3.4-5.0) gm/dl Globulin (2.5-4.0) gm/dl Albumin/Globulin Ratio (0.9-2) Lipase (11-82) U/L Urine Color Urine Appearance (Clear) Urine pH (4.5-7.5) Ur Specific [place] (1.000-1.030) Urine Protein (Negative) Urine Glucose (UA) (Negative) Urine Ketones (Negative) Urine Blood (Negative) Urine Nitrite (Negative) Urine Bilirubin (Negative) Urine Urobilinogen (Negative) Ur Leukocyte Esterase (Negative) Urine WBC (Auto) (0-5) /hpf Urine RBC (Auto) (0-4) /hpf U Hyaline Cast (Auto) (0-5) /lpf U Epithel Cells (Auto) (0-5) /lpf Urine Bacteria (Auto) (Negative) Urine Crystals (None Prsent) Amorphous Sediment (None Prsent) Salicylates (3.0-30) mg/dl Acetaminophen (10-30) ug/ml SARS-CoV-2, RNA, NAAT (NEGATIVE) 10/27/22 10/27/22 10/27/22 Range/Units 20:22 14:28 14:03 WBC (4.8-10.8) K/ul RBC (4.20-5.40) M/uL Hgb (12.0-16.0) g/dl POC Hgb (12.0-16.0) g/dl Hct (37.0-47.0) % POC Hct (37-47) % MCV (80.0-100.0) fL MCH (25.0-34.0) pg MCHC (32.0-36.0) g/dL RDW Std Deviation (36.4-46.3) fL RDW Coeff of Sherie (11.5-14.5) % Plt Count (130-400) K/uL MPV (9.4-12.4) fL Immature Gran % (Auto) % Neut % (Auto) % Lymph % (Auto) % Adams % (Auto) % Eos % (Auto) % Baso % (Auto) % Neut # (Auto) (1.40-6.50) K/uL Lymph # (Auto) (1.2-3.4) K/uL Adams # (Auto) (0.11-0.59) K/uL Eos # (Auto) (0-0.50) K/uL Baso # (Auto) (0-0.2) K/uL Immature Gran # (Auto) (0.01-0.20) K/uL PT (9.0-12.0) Seconds INR (0.9-1.1) APTT (21.0-31.0) Seconds PTT Ratio VBG pH (7.36-7.41) VBG pCO2 (38-50) mmHg VBG pO2 mmHg VBG HCO3 mmol/L VBG O2 Saturation % VBG Base Excess mEq/L POC Sodium (135-144) mmol/L Sodium (136-145) mmol/L POC Potassium (3.3-5.0) mmol/L Potassium (3.5-5.1) mmol/L POC Chloride (101-112) mmol/L Chloride (98-107) mmol/L Carbon Dioxide (21-32) mmol/L POC Total CO2 (24-31) mmol/L Anion Gap (3-11) POC Anion Gap (16-25) mmol/L POC BUN (7-18) mg/dl BUN (6-23) mg/dl Creatinine (0.6-1.2) mg/dl POC Creatinine (0.6-1.3) mg/dl Est Cr Clr Drug Dosing ml/min Est GFR ( Amer) ml/min Est GFR (Non-Af Amer) ml/min BUN/Creatinine Ratio (10-20) Glucose (70-99(Fasting)) mg/dl POC Glucose (70-99) mg/dl POC Glucose (other) (70-99) mg/dl Estimat Average Glucose Hemoglobin A1c Lactate 1.3 (0.4-2.0) mmol/L Calcium (8.6-10.3) mg/dl POC Ioniz Calcium Hamida (1.12-1.32) mmol/l Magnesium (1.7-2.4) mg/dl Total Bilirubin (0.2-1.0) mg/dl AST (13-39) U/L ALT (7-52) U/L Alkaline Phosphatase (34-104) U/L Ammonia (18-72) umol/L Troponin I High Sens (0-14) pg/ml Total Protein (6.0-8.3) gm/dl Albumin (3.4-5.0) gm/dl Globulin (2.5-4.0) gm/dl Albumin/Globulin Ratio (0.9-2) Lipase (11-82) U/L Urine Color Dark Yellow Urine Appearance Turbid A (Clear) Urine pH 5.0 (4.5-7.5) Ur Specific [place] 1.027 (1.000-1.030) Urine Protein Negative (Negative) Urine Glucose (UA) Negative (Negative) Urine Ketones Trace H (Negative) Urine Blood Trace H (Negative) Urine Nitrite Negative (Negative) Urine Bilirubin Negative (Negative) Urine Urobilinogen Negative (Negative) Ur Leukocyte Esterase Negative (Negative) Urine WBC (Auto) 1-5 (0-5) /hpf Urine RBC (Auto) 0-4 (0-4) /hpf U Hyaline Cast (Auto) 1-5 (0-5) /lpf U Epithel Cells (Auto) 10-20 H (0-5) /lpf Urine Bacteria (Auto) Negative (Negative) Urine Crystals Amorphous Sediment A (None Prsent) Amorphous Sediment Present A (None Prsent) Salicylates (3.0-30) mg/dl Acetaminophen (10-30) ug/ml SARS-CoV-2, RNA, NAAT NEGATIVE (NEGATIVE) 10/27/22 10/27/22 10/27/22 Range/Units 14:03 13:49 13:06 WBC (4.8-10.8) K/ul RBC (4.20-5.40) M/uL Hgb (12.0-16.0) g/dl POC Hgb 20.1 H* (12.0-16.0) g/dl Hct (37.0-47.0) % POC Hct 59 H (37-47) % MCV (80.0-100.0) fL MCH (25.0-34.0) pg MCHC (32.0-36.0) g/dL RDW Std Deviation (36.4-46.3) fL RDW Coeff of Sherie (11.5-14.5) % Plt Count (130-400) K/uL MPV (9.4-12.4) fL Immature Gran % (Auto) % Neut % (Auto) % Lymph % (Auto) % Adams % (Auto) % Eos % (Auto) % Baso % (Auto) % Neut # (Auto) (1.40-6.50) K/uL Lymph # (Auto) (1.2-3.4) K/uL Adams # (Auto) (0.11-0.59) K/uL Eos # (Auto) (0-0.50) K/uL Baso # (Auto) (0-0.2) K/uL Immature Gran # (Auto) (0.01-0.20) K/uL PT (9.0-12.0) Seconds INR (0.9-1.1) APTT (21.0-31.0) Seconds PTT Ratio VBG pH 7.42 H (7.36-7.41) VBG pCO2 37 L (38-50) mmHg VBG pO2 52 mmHg VBG HCO3 24 mmol/L VBG O2 Saturation 86.6 % VBG Base Excess -0.2 mEq/L POC Sodium 140 (135-144) mmol/L Sodium (136-145) mmol/L POC Potassium 3.6 (3.3-5.0) mmol/L Potassium (3.5-5.1) mmol/L POC Chloride 101 (101-112) mmol/L Chloride (98-107) mmol/L Carbon Dioxide (21-32) mmol/L POC Total CO2 21 L (24-31) mmol/L Anion Gap (3-11) POC Anion Gap 23.0 (16-25) mmol/L POC BUN 10 (7-18) mg/dl BUN (6-23) mg/dl Creatinine (0.6-1.2) mg/dl POC Creatinine 0.5 L (0.6-1.3) mg/dl Est Cr Clr Drug Dosing ml/min Est GFR ( Amer) ml/min Est GFR (Non-Af Amer) ml/min BUN/Creatinine Ratio (10-20) Glucose (70-99(Fasting)) mg/dl POC Glucose (70-99) mg/dl POC Glucose (other) 202 H (70-99) mg/dl Estimat Average Glucose Hemoglobin A1c Lactate (0.4-2.0) mmol/L Calcium (8.6-10.3) mg/dl POC Ioniz Calcium Ham[place] 1.13 (1.12-1.32) mmol/l Magnesium (1.7-2.4) mg/dl Total Bilirubin (0.2-1.0) mg/dl AST (13-39) U/L ALT (7-52) U/L Alkaline Phosphatase (34-104) U/L Ammonia (18-72) umol/L Troponin I High Sens (0-14) pg/ml Total Protein (6.0-8.3) gm/dl Albumin (3.4-5.0) gm/dl Globulin (2.5-4.0) gm/dl Albumin/Globulin Ratio (0.9-2) Lipase (11-82) U/L Urine Color Urine Appearance (Clear) Urine pH (4.5-7.5) Ur Specific [place] (1.000-1.030) Urine Protein (Negative) Urine Glucose (UA) (Negative) Urine Ketones (Negative) Urine Blood (Negative) Urine Nitrite (Negative) Urine Bilirubin (Negative) Urine Urobilinogen (Negative) Ur Leukocyte Esterase (Negative) Urine WBC (Auto) (0-5) /hpf Urine RBC (Auto) (0-4) /hpf U Hyaline Cast (Auto) (0-5) /lpf U Epithel Cells (Auto) (0-5) /lpf Urine Bacteria (Auto) (Negative) Urine Crystals (None Prsent) Amorphous Sediment (None Prsent) Salicylates < 3.0 L (3.0-30) mg/dl Acetaminophen (10-30) ug/ml SARS-CoV-2, RNA, NAAT (NEGATIVE) 10/27/22 10/27/22 10/27/22 Range/Units 13:06 12:38 12:03 WBC (4.8-10.8) K/ul RBC (4.20-5.40) M/uL Hgb (12.0-16.0) g/dl POC Hgb (12.0-16.0) g/dl Hct (37.0-47.0) % POC Hct (37-47) % MCV (80.0-100.0) fL MCH (25.0-34.0) pg MCHC (32.0-36.0) g/dL RDW Std Deviation (36.4-46.3) fL RDW Coeff of Sherie (11.5-14.5) % Plt Count (130-400) K/uL MPV (9.4-12.4) fL Immature Gran % (Auto) % Neut % (Auto) % Lymph % (Auto) % Adams % (Auto) % Eos % (Auto) % Baso % (Auto) % Neut # (Auto) (1.40-6.50) K/uL Lymph # (Auto) (1.2-3.4) K/uL Adams # (Auto) (0.11-0.59) K/uL Eos # (Auto) (0-0.50) K/uL Baso # (Auto) (0-0.2) K/uL Immature Gran # (Auto) (0.01-0.20) K/uL PT (9.0-12.0) Seconds INR (0.9-1.1) APTT (21.0-31.0) Seconds PTT Ratio VBG pH (7.36-7.41) VBG pCO2 (38-50) mmHg VBG pO2 mmHg VBG HCO3 mmol/L VBG O2 Saturation % VBG Base Excess mEq/L POC Sodium (135-144) mmol/L Sodium 139 (136-145) mmol/L POC Potassium (3.3-5.0) mmol/L Potassium 3.6 (3.5-5.1) mmol/L POC Chloride (101-112) mmol/L Chloride 104 (98-107) mmol/L Carbon Dioxide 19 L (21-32) mmol/L POC Total CO2 (24-31) mmol/L Anion Gap 16 H (3-11) POC Anion Gap (16-25) mmol/L POC BUN (7-18) mg/dl BUN 11 (6-23) mg/dl Creatinine 0.67 (0.6-1.2) mg/dl POC Creatinine (0.6-1.3) mg/dl Est Cr Clr Drug Dosing 94.0 ml/min Est GFR ( Amer) 104.7 ml/min Est GFR (Non-Af Amer) 90.3 ml/min BUN/Creatinine Ratio 16.4 (10-20) Glucose 198 H (70-99(Fasting)) mg/dl POC Glucose 207 H (70-99) mg/dl POC Glucose (other) (70-99) mg/dl Estimat Average Glucose Hemoglobin A1c Lactate (0.4-2.0) mmol/L Calcium 9.8 (8.6-10.3) mg/dl POC Ioniz Calcium [place] (1.12-1.32) mmol/l Magnesium 1.7 (1.7-2.4) mg/dl Total Bilirubin (0.2-1.0) mg/dl AST (13-39) U/L ALT (7-52) U/L Alkaline Phosphatase (34-104) U/L Ammonia 40.0 (18-72) umol/L Troponin I High Sens 8.4 (0-14) pg/ml Total Protein (6.0-8.3) gm/dl Albumin (3.4-5.0) gm/dl Globulin (2.5-4.0) gm/dl Albumin/Globulin Ratio (0.9-2) Lipase 21 (11-82) U/L Urine Color Urine Appearance (Clear) Urine pH (4.5-7.5) Ur Specific [place] (1.000-1.030) Urine Protein (Negative) Urine Glucose (UA) (Negative) Urine Ketones (Negative) Urine Blood (Negative) Urine Nitrite (Negative) Urine Bilirubin (Negative) Urine Urobilinogen (Negative) Ur Leukocyte Esterase (Negative) Urine WBC (Auto) (0-5) /hpf Urine RBC (Auto) (0-4) /hpf U Hyaline Cast (Auto) (0-5) /lpf U Epithel Cells (Auto) (0-5) /lpf Urine Bacteria (Auto) (Negative) Urine Crystals (None Prsent) Amorphous Sediment (None Prsent) Salicylates (3.0-30) mg/dl Acetaminophen (10-30) ug/ml SARS-CoV-2, RNA, NAAT (NEGATIVE) 10/27/22 10/27/22 10/27/22 Range/Units 11:59 11:59 11:59 WBC 8.00 (4.8-10.8) K/ul RBC 4.55 (4.20-5.40) M/uL Hgb 15.0 (12.0-16.0) g/dl POC Hgb (12.0-16.0) g/dl Hct 42.4 (37.0-47.0) % POC Hct (37-47) % MCV 93.2 (80.0-100.0) fL MCH 33.0 (25.0-34.0) pg MCHC 35.4 (32.0-36.0) g/dL RDW Std Deviation 43.1 (36.4-46.3) fL RDW Coeff of Sherie 12.6 (11.5-14.5) % Plt Count 359 (130-400) K/uL MPV 9.5 (9.4-12.4) fL Immature Gran % (Auto) 0.4 % Neut % (Auto) 72.5 % Lymph % (Auto) 20.1 % Adams % (Auto) 6.1 % Eos % (Auto) 0.1 % Baso % (Auto) 0.8 % Neut # (Auto) 5.80 (1.40-6.50) K/uL Lymph # (Auto) 1.61 (1.2-3.4) K/uL Adams # (Auto) 0.49 (0.11-0.59) K/uL Eos # (Auto) 0.01 (0-0.50) K/uL Baso # (Auto) 0.06 (0-0.2) K/uL Immature Gran # (Auto) 0.03 (0.01-0.20) K/uL PT 10.4 (9.0-12.0) Seconds INR 0.9 (0.9-1.1) APTT 22.8 (21.0-31.0) Seconds PTT Ratio 0.8 VBG pH (7.36-7.41) VBG pCO2 (38-50) mmHg VBG pO2 mmHg VBG HCO3 mmol/L VBG O2 Saturation % VBG Base Excess mEq/L POC Sodium (135-144) mmol/L Sodium (136-145) mmol/L POC Potassium (3.3-5.0) mmol/L Potassium (3.5-5.1) mmol/L POC Chloride (101-112) mmol/L Chloride (98-107) mmol/L Carbon Dioxide (21-32) mmol/L POC Total CO2 (24-31) mmol/L Anion Gap (3-11) POC Anion Gap (16-25) mmol/L POC BUN (7-18) mg/dl BUN (6-23) mg/dl Creatinine (0.6-1.2) mg/dl POC Creatinine (0.6-1.3) mg/dl Est Cr Clr Drug Dosing ml/min Est GFR ( Amer) ml/min Est GFR (Non-Af Amer) ml/min BUN/Creatinine Ratio (10-20) Glucose (70-99(Fasting)) mg/dl POC Glucose (70-99) mg/dl POC Glucose (other) (70-99) mg/dl Estimat Average Glucose Hemoglobin A1c Lactate (0.4-2.0) mmol/L Calcium (8.6-10.3) mg/dl POC Ioniz Calcium [place] (1.12-1.32) mmol/l Magnesium (1.7-2.4) mg/dl Total Bilirubin (0.2-1.0) mg/dl AST (13-39) U/L ALT (7-52) U/L Alkaline Phosphatase (34-104) U/L Ammonia (18-72) umol/L Troponin I High Sens (0-14) pg/ml Total Protein (6.0-8.3) gm/dl Albumin (3.4-5.0) gm/dl Globulin (2.5-4.0) gm/dl Albumin/Globulin Ratio (0.9-2) Lipase (11-82) U/L Urine Color Urine Appearance (Clear) Urine pH (4.5-7.5) Ur Specific [place] (1.000-1.030) Urine Protein (Negative) Urine Glucose (UA) (Negative) Urine Ketones (Negative) Urine Blood (Negative) Urine Nitrite (Negative) Urine Bilirubin (Negative) Urine Urobilinogen (Negative) Ur Leukocyte Esterase (Negative) Urine WBC (Auto) (0-5) /hpf Urine RBC (Auto) (0-4) /hpf U Hyaline Cast (Auto) (0-5) /lpf U Epithel Cells (Auto) (0-5) /lpf Urine Bacteria (Auto) (Negative) Urine Crystals (None Prsent) Amorphous Sediment (None Prsent) Salicylates (3.0-30) mg/dl Acetaminophen < 3 L (10-30) ug/ml SARS-CoV-2, RNA, NAAT (NEGATIVE) Medications Administered Current Inpatient Medications Acetaminophen (Acetaminophen 325 Mg Tab) 650 mg PO Q4H PRN PRN Reason: Pain or Fever Stop: 11/26/22 14:33 Al Hydrox/Mg Hydrox/Simethicone (Aluminum/Magnesium Susp 30 Ml Udc) 15 ml PO Q4H PRN PRN Reason: Dyspepsia Stop: 11/26/22 14:33 Albuterol (Albuterol Hfa 8 Gm Inhaler) 2 puffs INH QIDR JAZMIN Stop: 11/26/22 23:14 Last Admin: 10/28/22 07:09 Dose: 2 puffs Amlodipine Besylate (Amlodipine Besylate 5 Mg Tab) 2.5 mg PO BID [facility] Stop: 11/26/22 20:59 Atorvastatin Calcium (Atorvastatin 40 Mg Tab) 40 mg PO DAILY JAZMIN Stop: 11/27/22 08:59 Last Admin: 10/28/22 08:29 Dose: 40 mg Buspirone HCl (Buspirone 5 Mg Tab) 10 mg PO BID JAZMIN Stop: 11/26/22 20:59 Last Admin: 10/28/22 08:28 Dose: 10 mg Cilostazol (Cilostazol 100 Mg Tab) 100 mg PO BID JAZMIN Stop: 11/26/22 20:59 Last Admin: 10/28/22 08:28 Dose: 100 mg Clopidogrel Bisulfate (Clopidogrel Bisulfate 75 Mg Tab) 75 mg PO DAILY JAZMIN Stop: 11/27/22 08:59 Last Admin: 10/28/22 08:28 Dose: 75 mg Dextrose (Dextrose 50% 50 Ml Syringe) 25 - 50 ml IV UD PRN; Protocol PRN Reason: Hypoglycemia Protocol Stop: 11/26/22 17:34 Glucagon (Glucagon For Inj 1 Mg Vial) 1 mg SQ UD PRN; Protocol PRN Reason: Hypoglycemia Protocol Stop: 11/26/22 17:34 Glucose (Glucose 10 Tab/Tube) 4 - 8 tab PO UD PRN; Protocol PRN Reason: Hypoglycemia Treatment Stop: 11/26/22 17:34 Glucose (Glucose 40% Gel 15 Gm Tube) 15 - 30 gm PO UD PRN; Protocol PRN Reason: Hypoglycemia Protocol Stop: 11/26/22 17:34 Sodium Chloride (Nss 1000ml) 1,000 mls @ 80 mls/hr IV .[id number] [facility] Stop: 11/27/22 08:59 Insulin Aspart (Insulin Aspart Per Unit Charge) 0 units SC Q6 JAZMIN Stop: 11/26/22 19:59 Last Admin: 10/28/22 05:54 Dose: Not Given Losartan Potassium (Losartan Potassium 50 Mg Tab) 50 mg PO DAILY [facility] Stop: 11/27/22 08:59 Magnesium Hydroxide (Magnesium Hydroxide Susp 30 Ml Udc) 30 ml PO Q12H PRN PRN Reason: Constipation Stop: 11/26/22 14:33 Metoprolol Tartrate (Metoprolol Tartrate 25 Mg Tab) 25 mg PO BID [facility] Stop: 11/26/22 20:59 Miscellaneous (Carbohydrates For Hypoglycemia ) 15 - 30 gm PO UD PRN PRN Reason: Hypoglycemia Protocol Stop: 11/26/22 17:34 Miscellaneous Information (Pharmacy Glycemic Mgmt Consult) 1 each N/A UD PRN PRN Reason: Consult Stop: 11/26/22 17:34 Ondansetron HCl (Ondansetron Inj 2 Mg/Ml 2 Ml Vial) 4 mg IV Q6H PRN PRN Reason: Nausea Stop: 11/26/22 14:33 Pantoprazole Sodium (Pantoprazole 40 Mg Tab) 40 mg PO BID [facility] Stop: 11/26/22 20:59 Last Admin: 10/28/22 08:28 Dose: 40 mg Polyethylene Glycol (Polyethylene (Miralax) 17 Gm Pack) 17 gm PO DAILY PRN PRN Reason: Constipation Stop: 11/26/22 14:33 Venlafaxine HCl (Venlafaxine Hcl Xr 37.5 Mg Capxr) 37.5 mg PO DAILY JAZMIN Stop: 11/27/22 08:59 Last Admin: 10/28/22 08:28 Dose: 37.5 mg
[2022-10-28] MEDS ORDERED: LOSARTAN POTASSIUM 50 MG TAB PO SCH (09:00)
[2022-10-28] MEDS ORDERED: SODIUM CHLORIDE 0.9% 1000ML 1,000 ML IV SCH (09:00)
--- NOTE | 2022-10-28 09:24 | Neurology Consultation ---
Date of Consultation October 28, 2022 Assessment & Plan (1) History of CVA (cerebrovascular accident): (2) Expressive aphasia: (3) HTN (hypertension): Plan patient has a history of an acute left basal ganglia stroke October 23. This morning she is stable and somewhat improved although she has some mild expressive aphasia and dysarthria without any other focal neurologic deficits. She has no encephalopathy / altered mental status or meningeal signs. MRI showed rather extensive old small vessel ischemic disease for age and her risk factors include significant history of hypertension and type 2 diabetes. There is also history of dyslipidemia and former smoking. She quit smoking 15 years ago. She was that [facility] [address] from October 23 through October 26 and had some testing but we do not have any records. Recommendations: 1. Obtain records from [facility] [address]. 2. If she has not had CT angiography of the head and neck that would be important to do. 3. In addition echocardiogram if that was not done 4. Fasting lipid profile. Keep atorvastatin the same until the fasting lipid profile Results are known 5. Awaiting hemoglobin A1c. 6. control blood pressure and glucose as you are doing. 7. Increase activity as able with physical and occupational therapy. 8. Speech therapy 9. Plavix 75 milligrams daily +80 1 milligram aspirin tablet daily. 10. I will follow. History of Present Illness Reason for Consultation: patient is a 67-year-old, who I was asked to see at the request of TAYLOR Tracy, for neurologic consultation regarding worsening neurologic symptoms. Requesting Physician: TAYLOR Tarcy Attending Physician: Carlin Willard MD History of Present Illness This patient has a history of a stroke in 2018. She went to [facility] because her left side was weak. She was initiated on Plavix. She recovered and has not had any residual since. Patient has a history of hypertension and type 2 diabetes. She also has a history of depression and dyslipidemia. Patient did well until MondayOctober 23. She had the inability to speak or come up with words that she wanted to say. She denied weakness although her balance was not normal. Unfortunately, I have no records from her hospital stay at [facility] [address] in [place], [place]. patient tells me she had test that looked at her arteries but she did not have an MRI. Apparently she did not see a neurologist. She was discharged October 26, on Plavix. she remembers at the time of discharge she was still having trouble speaking. Over the next day she started having some nonspecific blurry vision and more slurred speech and expressive aphasia. In addition the family states that she was having emotional lability going from crying to laughing and loving. She arrived at [facility] on October 27 at 11:43 with a temperature of 36.7, pulse 100 and regular, respiratory rate 18, blood pressure 140/82, and O2 saturation 99 percent. Examination was remarkable for mild dysarthria and a possible left facial droop. CBC and Chem profile were largely unremarkable and ammonia was normal at 40. CT scan of the head showed hypodensities ( age-indeterminate) in the left basal ganglia and right thalamus. MRI of the brain showed a new acute to subacute left basal ganglia stroke. There was moderate generalized atrophy and moderate old small vessel ischemic disease. I reviewed these films. There are no acute thalamic lesions. Today, CBC is largely unremarkable and Chem profile is normal although the glucose was 143. hemoglobin A1c is pending. Liver profile was normal. Urinalysis was unremarkable This morning patient still has some trouble speaking but she has no trouble swallowing, has no weakness or numbness in the limbs, no pain or headaches, and no vision problems. She feels her mentation and thinking is normal/baseline. Allergies Allergy/AdvReac Type Severity Reaction Status Date / Time Penicillins Allergy from Verified 10/27/22 15:56 childhood Home Medications Medication Instructions Recorded Confirmed Type amlodipine 2.5 mg tablet 2.5 mg PO BID 10/27/22 10/27/22 History atorvastatin 40 mg tablet 40 mg PO DAILY 10/27/22 10/27/22 History buspirone 10 mg tablet 10 mg PO BID 10/27/22 10/27/22 History cilostazol 50 mg tablet 100 mg PO BID 10/27/22 10/27/22 History clopidogrel 75 mg tablet (Plavix) 75 mg PO DAILY 10/27/22 10/27/22 History cyclobenzaprine 10 mg tablet 5 mg PO BID PRN Muscle Spasm 10/27/22 10/27/22 History losartan 50 mg tablet 50 mg PO DAILY 10/27/22 10/27/22 History metformin 1,000 mg tablet 1,000 mg PO BID 10/27/22 10/27/22 History metoprolol tartrate 25 mg tablet 25 mg PO BID 10/27/22 10/27/22 History pantoprazole 40 mg tablet,delayed 40 mg PO BID 10/27/22 10/27/22 History release venlafaxine 37.5 mg 37.5 mg PO DAILY 10/27/22 10/27/22 History capsule,extended release 24 hr Patient History Medical History (Updated 10/28/22 @ 09:20 by Lowell Zamora MD) CVA (cerebral vascular accident) DM2 (diabetes mellitus, type 2) History of CVA (cerebrovascular accident) HTN (hypertension) Stroke-like symptoms Surgical History (Updated 10/28/22 @ 09:16 by Lowell Zamora MD) Hx of abdominal surgery "20 pound" right fallopian tube/ovary tumor removed No pertinent past surgical history Family History Mother Diabetes Father , age 85 of heart disease Heart disease Other Dementia Stroke Social History (Updated 10/28/22 @ 09:18 by Lowell Zamora MD) Smoking Status: Former smoker Age Started Using Tobacco: 17; Age Quit Using Tobacco: 52; packs per day: 1; Hx Alcohol Use: No Hx Substance Use: No Preferred Language: Greenlandic Communication Ability: Effective Auto Wheel Alignment Specialist Required: No Beliefs That Will Affect Care: None Current Living Situation: Spouse current occupational status: retired current occupation: retired nurse's aide Feels Safe at Home: Yes Assistive Devices: Glasses and Walker Review of Systems Constitutional: no fever, no fatigue and no weakness Eyes: no diplopia, no eye pain and no worsening vision Ear, Nose, Mouth, Throat: no ear pain, no tinnitus, no hearing loss, no dizziness, no snoring, no hoarseness and no dysphagia Respiratory: no cough and no dyspnea Cardiovascular: no chest pain, no palpitations and no lightheadedness Gastrointestinal: no abdominal pain, no nausea and no vomiting Genitourinary: no dysuria, no urinary frequency and no urinary incontinence Musculoskeletal: no back pain, no neck pain, no radicular pain, no joint pain and no myalgia Integumentary: no rash and no lesions Neurologic: + abnormal speech; no gait abnormality, no localized weakness, no generalized weakness, no tingling, no numbness, no tremor(s), no abnormal movements, no headache(s), no confusion and no memory loss Psychiatric: no depression, no irritability, no anxiety, no difficulty concentrating, no confusion and no hallucinations Endocrine: no fatigue and no flushing Hematologic / Lymphatic: no easy bleeding and no easy bruising Allergy / Immunological: no urticaria and no problem reported Exam (Neuro) Physical Exam: The patient is right-handed. The patient is awake, alert, and attentive. Speech mildly hesitant but she does seem to find the words she wants to say ( Therefore there may be a mild expressive aphasia present). There is some mild dysarthria. I note no obvious receptive aphasia. The patient can name objects, repeat phrases, and has normal spontaneous speech. Mentation and thought processes are intact, with orientation to person, place and time, and normal fund of knowledge. Attention and concentration are normal. Mood and affect are normal and appropriate. there is no emotional lability today. General appearance and grooming are normal. Short and long-term memory are intact. Pupils are 4 mm bilaterally and reactive to light. Extraocular eye muscles are intact without nystagmus. Visual acuity and visual del rosario seem normal grossly to confrontation. There are no deficits to sensation in the face in all 3 distributions of the fifth cranial nerve bilaterally. Corneal reflexes are positive bilaterally. Facial strength and symmetry was normal bilaterally. Hearing seems normal bilaterally. Palate moves well without asymmetry. There is normal sternocleidomastoid and trapezius (shoulder shrug) strength bilaterally. Tongue is midline with good strength bilaterally. Neck has a full range of motion without discomfort. There are no cervical bruits bilaterally. There are no cranial or ocular bruits. Heart is without murmur. There is a regular rhythm and rate. Cervical, thoracic, and lumbar spine are nontender to palpation. Gait Is not tested but stance sitting up in bed is normal. With outstretched arms there is no drift. There are no resting, postural, or action tremors. There is no ataxia with finger to nose testing. There is good facility in the hands. No other abnormal involuntary movements are noted. Motor strength is 5/5 diffusely in the arms bilaterally including deltoids, biceps, triceps, brachioradialis, wrist flexors and extensors, acid treater, and intrinsic hand muscles. Motor strength is 5/5 diffusely in the legs bilaterally including hip flexors, quadriceps, hamstrings, gastrocnemius, tibialis anterior, tibialis posterior, and Peroneii muscles. Toe extensors are normal and there is good bulk in the extensor digitorum brevis muscles bilaterally. The limbs have good tone without rigidity or spasticity. There is no atrophy noted in the muscles. Muscle bulk is normal, there is no tenderness to palpation, no myotonia to percussion, and no fasciculations seen. Sensory examination is intact to touch and pin throughout all 4 limbs diffusely. Reflexes are 2/4 in the biceps, triceps, brachioradialis, quadriceps, and Achill es tendons bilaterally. There is no clonus bilaterally. Toes are downgoing with plantar stimulation bilaterally. Peripheral pulses are present and of normal quality distally in all 4 limbs. There is no peripheral edema noted in the limbs. Results & Data Vital Signs (Past 12 Hours) Vital Signs Temp Pulse Pulse Pulse Resp BP Pulse Ox 10/28/22 08:58 96 H 10/28/22 07:41 36.4 C L 100 H 19 134/87 94 10/28/22 07:09 119 H 18 98 10/28/22 04:00 36.6 C 95 H 18 139/76 94 10/27/22 22:04 97 H 10/27/22 21:56 10/27/22 23:00 36.6 C 98 H 18 135/89 96 O2 Del Method 10/28/22 08:58 10/28/22 07:41 Room Air 10/28/22 07:09 Room Air 10/28/22 04:00 Room Air 10/27/22 22:04 10/27/22 21:56 Room Air 10/27/22 23:00 Room Air PG Care Time/CCT Total # of Minutes Spent Total Time Spent with Patient: Total time spent is greater than 50% in coordination of care (as documented) at patient's floor/unit and/or counseling patient: Coding Level of Care Code 53984 INT INP/OBS CARE 75MIN Diagnoses History of CVA (cerebrovascular accident) Z86.73 Expressive aphasia R47.01 HTN (hypertension) I10
[2022-10-28 10:07] LABS: Estimated Average Glucose 146 mg/dl; Hemoglobin A1C 6.7 % (4.5-5.6)
[2022-10-28] MEDS: ASPIRIN 81 MG ECTAB PO SCH (11:20)
[2022-10-28] MEDS: METOPROLOL TARTRATE 25 MG TAB PO SCH ×2 (11:20→21:59)
--- NOTE | 2022-10-28 14:17 | Pharmacy Report ---
Pharmacy Glycemic Short Note 2 - Date of Service October 28, 2022 - Glycemic Short BSG Results (Last 24 hours): 10/27/22 10/27/22 10/28/22 12:38 20:46 00:06 Glucose 198 H POC Glucose 130 H 167 H 10/28/22 10/28/22 10/28/22 05:52 06:04 11:15 Glucose 143 H POC Glucose 132 H 159 H OUTPATIENT ANTIDIABETIC REGIMEN: * Metformin 1000 mg PO BIDM * HbA1C = 6.7% (10/28/22) ASSESSMENT: * Ms Hilton is a 67 y/o F with a PMH of T2DM who presented with stroke-like symptoms. Patient was NPO earlier today.Now has a diet ordered. * Fasting BSG was 143 mg/dL. * For Lantus, start 10 units BID (hold if BSG < 150 mg/dL). * Novolog weight-based stress of 2 PLAN FOR INPATIENT GLYCEMIC CONTROL: * Hold outpatient oral diabetes medications * Basal insulin * Lantus 10 units SQ BID (hold if BSG < 150 mg/dL) * Bolus insulin * NovoLog per scale ACHS or Q6hrs while NPO * Goal Range: Low 110 mg/dL - High 140 mg/dL * Correction Factor: 30 mg/dL/unit * Nutritional / Prandial insulin per carb ratio of 1 unit per 10 grams CHO consumed
[2022-10-28] MEDS: amLODIPine BESYLATE 5 MG TAB PO SCH ×2 (17:33→21:58)
[2022-10-28] MEDS: LANTUS PER UNIT CHARGE SC SCH (20:44)
[2022-10-28] MEDS ORDERED: MELATONIN 3 MG TAB PO PRN (21:58)
[2022-10-29 07:20] LABS: Hematocrit (blood only) 36.8 % (37.0-47.0); Mean Corpuscular Hgb Conc 35.3 g/dL (32.0-36.0); Mean Corpuscular Volume 93.4 fL (80.0-100.0); Mean Platelet Volume 9.3 fL (9.4-12.4); Platelet Count 291 K/uL (130-400); RDW Coefficient of Variation 12.5 % (11.5-14.5); RDW Standard Deviation 42.9 fL (36.4-46.3); Red Blood Count 3.94 M/uL (4.20-5.40); White Blood Count 6.75 K/ul (4.8-10.8)
[2022-10-29 07:29] LABS: BUN Creatinine Ratio 23.6 (10-20); Calcium 8.9 mg/dl (8.6-10.3); Chol HDL Ratio 4.1 (0-5); Creatinine Clr Calc Pharmacy 118.3 ml/min; Est GFR (African American) 111.7 ml/min; Est GFR (Non-African American) 96.4 ml/min; Magnesium 1.7 mg/dl (1.7-2.4); Phosphorus 3.7 mg/dl (2.5-4.9); Potassium 3.4 mmol/L (3.5-5.1)
[2022-10-29] MEDS: ALBUTEROL HFA 8 GM INHALER INH SCH ×2 (08:07→11:34)
[2022-10-29] MEDS: INSULIN ASPART PER UNIT CHARGE SC SCH ×2 (09:00→12:47)
[2022-10-29] MEDS: LANTUS PER UNIT CHARGE SC SCH (09:01)
[2022-10-29] MEDS: amLODIPine BESYLATE 5 MG TAB PO SCH (09:04)
[2022-10-29] MEDS ORDERED: POTASSIUM CHLORIDE CRTAB 20 MEQ TABCR PO STA (09:04)
[2022-10-29] MEDS: ASPIRIN 81 MG ECTAB PO SCH (09:04)
[2022-10-29] MEDS: CLOPIDOGREL BISULFATE 75 MG TAB PO SCH (09:05)
[2022-10-29] MEDS: busPIRone 5 MG TAB PO SCH (09:05)
[2022-10-29] MEDS: cilostazoL 100 MG TAB PO SCH (09:05)
[2022-10-29] MEDS: ATORVASTATIN 40 MG TAB PO SCH (09:05)
[2022-10-29] MEDS: PANTOprazole 40 MG TAB PO SCH (09:06)
[2022-10-29] MEDS: VENLAFAXINE HCL XR 37.5 MG CAPXR PO SCH (09:06)
[2022-10-29] MEDS: METOPROLOL TARTRATE 25 MG TAB PO SCH (09:06)
--- NOTE | 2022-10-29 09:08 | Hospitalist Progress Note ---
Date of Service October 29, 2022 Assessment & Plan (1) Stroke-like symptoms: (2) History of CVA (cerebrovascular accident): (3) HTN (hypertension): (4) DM2 (diabetes mellitus, type 2): Plan 67 year old presents with CVA like symptoms; expressive aphasia, slurred speech, labile mood. admit at [facility] and Dx with CVA but no MRI or neuro consult done there. MRI pending. ON plavix and Atorva from previous CVA Dx 2018. Non insulin dependent DM, Hold anti-HTN meds for permissive HTN for now. PT/OT/ST. Strokelike symptoms: History of CVA - no new CVA (discussed w/ neurology): History of stroke 2018 inpatient hospital stay [facility]; requested records through H IM Seen at [facility] on Monday10/23/2022 did not receive MRI (pt declined d/t claustrophobia) but CT suggested stroke, no neuro consult at that time Worsening increased weakness and ataxia with mood labile Head CT:There are low-attenuation foci within the left basal ganglia and the right thalamus consistent with age-indeterminate lacunar infarcts. On Plavix, asa for previous stroke and atorvastatin 40 mg p.o. daily Per records review from [facility], patient was on Lipitor 10 mg daily, and she was discharged on 40 mg daily. Current LDL 88. Continue increased dose of statin. MRI brain - 1. Acute to subacute lacunar infarct in the left basal ganglia. 2. No additional foci of acute ischemia are identified. 3. There is no hemorrhage or mass effect. Neurology consult placed - cont. ASA 81 mg daily, plavix 75 mg daily, and statin PT/OT Dysphagia screen; n.p.o. until cleared Speech therapy consult Case management for complex discharge needs; possible placement 10/28 -records from [facility] obtained and reviewed. Patient had CTA hea d and neck done there. Echo with bubble study not obtained, as patient wanted to be discharged home and get this test done as outpatient. Echo with bubble study ordered. CTA head per reviewed records, findings: Left vertebral artery is dominant. Basilar and bilateral internal carotid arteries are patent. The bilateral middle cerebral, anterior cerebral and posterior cerebral arteries are patent. No significant stenosis, occlusion or saccular aneurysm. Impression: No significant stenosis, occlusion or saccular aneurysm. CTA neck. Reviewed records. Findings: There is a three-vessel arch. The origin of the arch vessels are widely patent. The common carotid arteries are patent. There is calcified plaque formation of the bilateral carotid bulbs and proximal internal carotid arteries. There is less than 25% stenosis bilaterally. No occlusion. Bilateral vertebral arteries are patent. Left vertebral artery is dominant. There are degenerative changes of the cervical spine. Lungs apices are clear. Impression: Calcified plaque formation of the bilateral carotid bulbs and proximal internal carotid arteries with less than 25% stenosis bilaterally. It was recommended on her discharge from [facility] that she follows up with a Holter monitor as outpatient. It was also recommended that she follows up with neurology as outpatient. Echo (10/28/22) - LV is normal in size. There is borderline concentric LVH. LV wall motion is normal. LV is hyperdynamic. EF 65 to 70%. Grade 1 diastolic dysfunction. Aortic valve is not well visualized. There is focal calcification of the aortic valve leaflets without stenosis. Consider repeat imaging when medically appropriate. The mitral valve anatomy is normal. Interatrial septum is intact with no evidence for an atrial septal defect. Injection of contrast documented no interatrial shunt. HTN: Cont. losartan, amlodipine, and metoprolol Patient was hypertensive at [facility], and therefore she was started on Norvasc, and her home losartan was increased. [id number] diabetes mellitus type 2: Takes metformin; hold Placed on FSBS ACHS SSI while inpatient A1c 6.7% Depression and anxiety: Takes buspirone; continue Takes venlafaxine; continue GERD: Takes pantoprazole; continue Disposition: PCP: Dr. Mario Code Status: Full Code VTE Prophylaxis: SCDs for now Admission and Anticipated Discharge Date Admission Date: October 27, 2022 Subjective Pt seen in follow up of CVA Currently sitting up in bed, in no acute distress Overall feels well, she is moving extremities, she is not confused, however has some speech difficulty No fevers chills chest pain shortness of breath, no abdominal pain Obtained records from [facility], and reviewed. CT head and neck were done there. Echo with bubble study was not done as patient wanted to leave and get this done as outpatient. Echo with bubble study obtained here and reviewed. Review of Systems Review of Systems: All systems reviewed & are unremarkable except as noted in Subjective Physical Exam Physical Exam: General: obese F in NAD HEENT: head normocephalic, mo ist mucus membrane s CV: S1/S2, (-) M /G/R, (-) edema Re sp: Lungs CTA in a ll [place]. On RA G I: Abdomen S/NT/ND , Ax4 bowel sounds , (-) CVA tenderne ss Musculoskeletal : moves extremitie s Neuro: awake matthew rt oriented, PERRL ,+ mild expressive aphasia, + mild d ysarthria, moves e xtremities Skin: ( -) rashes , (-) er ythema. Results & Data Results & Data Vital Signs (Past 12 Hours) Vital Signs Temp Pulse Pulse Resp BP BP Pulse Ox 10/29/22 08:08 90 18 92 10/29/22 07:23 36.6 C 93 H 18 154/97 H 94 10/29/22 07:22 92 H 10/29/22 03:27 37 C 85 18 152/72 H 93 10/28/22 22:16 91 H 10/28/22 22:26 37 C 94 H 18 141/88 H 94 10/28/22 21:30 O2 Del Method 10/29/22 08:08 Room Air 10/29/22 07:23 Room Air 10/29/22 07:22 10/29/22 03:27 Room Air 10/28/22 22:16 10/28/22 22:26 Room Air 10/28/22 21:30 Room Air Laboratory Results 10/29/22 10/29/22 10/29/22 Range/Units 07:44 06:39 06:39 WBC 6.75 (4.8-10.8) K/ul RBC 3.94 L (4.20-5.40) M/uL Hgb 13.0 (12.0-16.0) g/dl Hct 36.8 L (37.0-47.0) % MCV 93.4 (80.0-100.0) fL MCH 33.0 (25.0-34.0) pg MCHC 35.3 (32.0-36.0) g/dL RDW Std Deviation 42.9 (36.4-46.3) fL RDW Coeff of Sherie 12.5 (11.5-14.5) % Plt Count 291 (130-400) K/uL MPV 9.3 L (9.4-12.4) fL Sodium 137 (136-145) mmol/L Potassium 3.4 L (3.5-5.1) mmol/L Chloride 105 (98-107) mmol/L Carbon Dioxide 25 (21-32) mmol/L Anion Gap 7 (3-11) BUN 13 (6-23) mg/dl Creatinine 0.55 L (0.6-1.2) mg/dl Est Cr Clr Drug Dosing 118.3 ml/min Est GFR ( Amer) 111.7 ml/min Est GFR (Non-Af Amer) 96.4 ml/min BUN/Creatinine Ratio 23.6 H (10-20) Glucose 154 H (70-99(Fasting)) mg/dl POC Glucose 154 H (70-99) mg/dl Estimat Average Glucose mg/dl Hemoglobin A1c (4.5-5.6) % Calcium 8.9 (8.6-10.3) mg/dl Phosphorus 3.7 (2.5-4.9) mg/dl Magnesium 1.7 (1.7-2.4) mg/dl Triglycerides 142 (0-150) mg/dl Cholesterol 153 (0-200) mg/dl LDL Cholesterol, Calc 88 mg/dl VLDL Cholesterol, Calc 28 (0-30) mg/dl HDL Cholesterol 37 mg/dl Cholesterol/HDL Ratio 4.1 (0-5) 10/28/22 10/28/22 10/28/22 Range/Units 20:40 16:39 11:15 WBC (4.8-10.8) K/ul RBC (4.20-5.40) M/uL Hgb (12.0-16.0) g/dl Hct (37.0-47.0) % MCV (80.0-100.0) fL MCH (25.0-34.0) pg MCHC (32.0-36.0) g/dL RDW Std Deviation (36.4-46.3) fL RDW Coeff of Sherie (11.5-14.5) % Plt Count (130-400) K/uL MPV (9.4-12.4) fL Sodium (136-145) mmol/L Potassium (3.5-5.1) mmol/L Chloride (98-107) mmol/L Carbon Dioxide (21-32) mmol/L Anion Gap (3-11) BUN (6-23) mg/dl Creatinine (0.6-1.2) mg/dl Est Cr Clr Drug Dosing ml/min Est GFR ( Amer) ml/min Est GFR (Non-Af Amer) ml/min BUN/Creatinine Ratio (10-20) Glucose (70-99(Fasting)) mg/dl POC Glucose 106 H 143 H 159 H (70-99) mg/dl Estimat Average Glucose mg/dl Hemoglobin A1c (4.5-5.6) % Calcium (8.6-10.3) mg/dl Phosphorus (2.5-4.9) mg/dl Magnesium (1.7-2.4) mg/dl Triglycerides (0-150) mg/dl Cholesterol (0-200) mg/dl LDL Cholesterol, Calc mg/dl VLDL Cholesterol, Calc (0-30) mg/dl HDL Cholesterol mg/dl Cholesterol/HDL Ratio (0-5) 10/28/22 Range/Units 06:04 WBC (4.8-10.8) K/ul RBC (4.20-5.40) M/uL Hgb (12.0-16.0) g/dl Hct (37.0-47.0) % MCV (80.0-100.0) fL MCH (25.0-34.0) pg MCHC (32.0-36.0) g/dL RDW Std Deviation (36.4-46.3) fL RDW Coeff of Sherie (11.5-14.5) % Plt Count (130-400) K/uL MPV (9.4-12.4) fL Sodium (136-145) mmol/L Potassium (3.5-5.1) mmol/L Chloride (98-107) mmol/L Carbon Dioxide (21-32) mmol/L Anion Gap (3-11) BUN (6-23) mg/dl Creatinine (0.6-1.2) mg/dl Est Cr Clr Drug Dosing ml/min Est GFR ( Amer) ml/min Est GFR (Non-Af Amer) ml/min BUN/Creatinine Ratio (10-20) Glucose (70-99(Fasting)) mg/dl POC Glucose (70-99) mg/dl Estimat Average Glucose 146 mg/dl Hemoglobin A1c 6.7 H (4.5-5.6) % Calcium (8.6-10.3) mg/dl Phosphorus (2.5-4.9) mg/dl Magnesium (1.7-2.4) mg/dl Triglycerides (0-150) mg/dl Cholesterol (0-200) mg/dl LDL Cholesterol, Calc mg/dl VLDL Cholesterol, Calc (0-30) mg/dl HDL Cholesterol mg/dl Cholesterol/HDL Ratio (0-5) Medications Administered Current Inpatient Medications Acetaminophen (Acetaminophen 325 Mg Tab) 650 mg PO Q4H PRN PRN Reason: Pain or Fever Stop: 11/26/22 14:33 Al Hydrox/Mg Hydrox/Simethicone (Aluminum/Magnesium Susp 30 Ml Udc) 15 ml PO Q4H PRN PRN Reason: Dyspepsia Stop: 11/26/22 14:33 Albuterol (Albuterol Hfa 8 Gm Inhaler) 2 puffs INH QIDR [facility] Stop: 11/26/22 23:14 Last Admin: 10/29/22 08:07 Dose: 2 puffs Amlodipine Besylate (Amlodipine Besylate 5 Mg Tab) 2.5 mg PO BID [facility] Stop: 11/27/22 14:49 Last Admin: 10/28/22 21:58 Dose: 2.5 mg Aspirin (Aspirin 81 Mg Ectab) 81 mg PO QAM [facility] Stop: 11/27/22 09:59 Last Admin: 10/28/22 11:20 Dose: 81 mg Atorvastatin Calcium (Atorvastatin 40 Mg Tab) 40 mg PO DAILY [facility] Stop: 11/27/22 08:59 Last Admin: 10/28/22 08:29 Dose: 40 mg Buspirone HCl (Buspirone 5 Mg Tab) 10 mg PO BID [facility] Stop: 11/26/22 20:59 Last Admin: 10/28/22 22:00 Dose: 10 mg Cilostazol (Cilostazol 100 Mg Tab) 100 mg PO BID [facility] Stop: 11/26/22 20:59 Last Admin: 10/28/22 22:00 Dose: 100 mg Clopidogrel Bisulfate (Clopidogrel Bisulfate 75 Mg Tab) 75 mg PO DAILY [facility] Stop: 11/27/22 08:59 Last Admin: 10/28/22 08:28 Dose: 75 mg Dextrose (Dextrose 50% 50 Ml Syringe) 25 - 50 ml IV UD PRN; Protocol PRN Reason: Hypoglycemia Protocol Stop: 11/26/22 17:34 Glucagon (Glucagon For Inj 1 Mg Vial) 1 mg SQ UD PRN; Protocol PRN Reason: Hypoglycemia Protocol Stop: 11/26/22 17:34 Glucose (Glucose 10 Tab/Tube) 4 - 8 tab PO UD PRN; Protocol PRN Reason: Hypoglycemia Treatment Stop: 11/26/22 17:34 Glucose (Glucose 40% Gel 15 Gm Tube) 15 - 30 gm PO UD PRN; Protocol PRN Reason: Hypoglycemia Protocol Stop: 11/26/22 17:34 Insulin Aspart (Insulin Aspart Per Unit Charge) 0 units SC ACHS [facility] Stop: 11/27/22 16:29 Last Admin: 10/28/22 20:43 Dose: Not Given Insulin Glargine (Lantus Per Unit Charge) 0 units SC BID JAZMIN; Protocol Stop: 11/27/22 20:59 Last Admin: 10/28/22 20:44 Dose: Not Given Losartan Potassium (Losartan Potassium 50 Mg Tab) 50 mg PO DAILY [facility] Stop: 11/27/22 08:59 Magnesium Hydroxide (Magnesium Hydroxide Susp 30 Ml Udc) 30 ml PO Q12H PRN PRN Reason: Constipation Stop: 11/26/22 14:33 Melatonin (Melatonin 3 Mg Tab) 3 mg PO HS PRN PRN Reason: Sleep Stop: 11/27/22 21:57 Last Admin: 10/28/22 22:14 Dose: 3 mg Metoprolol Tartrate (Metoprolol Tartrate 25 Mg Tab) 25 mg PO BID [facility] Stop: 11/26/22 20:59 Last Admin: 10/28/22 21:59 Dose: 25 mg Miscellaneous (Carbohydrates For Hypoglycemia ) 15 - 30 gm PO UD PRN PRN Reason: Hypoglycemia Protocol Stop: 11/26/22 17:34 Miscellaneous Information (Pharmacy Glycemic Mgmt Consult) 1 each N/A UD PRN PRN Reason: Consult Stop: 11/26/22 17:34 Ondansetron HCl (Ondansetron Inj 2 Mg/Ml 2 Ml Vial) 4 mg IV Q6H PRN PRN Reason: Nausea Stop: 11/26/22 14:33 Pantoprazole Sodium (Pantoprazole 40 Mg Tab) 40 mg PO BID [facility] Stop: 11/26/22 20:59 Last Admin: 10/28/22 22:00 Dose: 40 mg Polyethylene Glycol (Polyethylene (Miralax) 17 Gm Pack) 17 gm PO DAILY PRN PRN Reason: Constipation Stop: 11/26/22 14:33 Venlafaxine HCl (Venlafaxine Hcl Xr 37.5 Mg Capxr) 37.5 mg PO DAILY JAZMIN Stop: 11/27/22 08:59 Last Admin: 10/28/22 08:28 Dose: 37.5 mg
--- NOTE | 2022-10-29 10:21 | Discharge Summary ---
Date of Service October 29, 2022 Admission HPI Per Admitting Provider Ms. Farooq is a 67-year-old female that presented to the ED today after her family stated that she was experiencing visual disturbance along with slurred speech and expressive aphasia. Patient was seen at the [facility] on MondayOctober 23 and was reportedly diagnosed with a stroke. No MRI was performed there due to claustrophobia and she was reportedly not evaluated by her neurologist. Since she was discharged her weakness has increased along with ataxia and her emotional status has become more labile where she can be affectionate one minute and very aggressive the next. Past medical history includes history of CVA diagnosed 2018 at [facility] (takes Plavix), HTN, BPH, and [id number]-[id number] DM2. Head CT here showed low-attenuation foci within the left basal ganglia and the right thalamus consistent with age-indeterminate lacunar infarcts. Patient denies headache, dizziness, chest pain, palpitations, abdominal pain, recent sickness exposure recent falls or trauma. Patient sitting in her hospital bed and able to have communication but does experience expressive aphasia. Patient has equal strength upper extremity and lower extremity. Patient does have right-sided facial droop which the patient's family expresses has been present since her stroke in 2017 but does seem a little worse since Monday. CN II-XII grossly intact. Patient will be admitted for further evaluation and management. Please see A/P for further details. Admission Exam Per Admitting Provider Neuro: AAOx4, PERRLA, no aphagia, memory changes, CNII-XII grossly intact HEENT: head normocephalic, moist mucus membranes CV: S1/S2, (-) M/G/R, (-) edema, cap refill < 3 seconds Resp: Lungs CTA in all [place]. On RA GI: Abdomen S/NT/ND, Ax4 bowel sounds, (-) CVA tenderness Musculoskeletal: 5/5 B/L UE strength, 5/5 B/L LE strength. No gait disturbance Skin: (-) rashes , (-) erythema. Psych:labile mood Principal Diagnosis History of CVA Expressive aphasia Discharge Exam General: obese F in NAD HEENT: head normocephalic, moist mucus membranes CV: S1/S2, (-) M/G/R, (-) edema Resp: Lungs CTA in all [place]. On RA GI: Abdomen S/NT/ND, Ax4 bowel sounds, (-) CVA tenderness Musculoskeletal: moves extremities Neuro: awake alert oriented, PERRL,+ mild expressive aphasia, + mild dysarthria, moves extremities Skin: (-) rashes , (-) erythema. Discharge Data Allergies Allergy/AdvReac Type Severity Reaction Status Date / Time Penicillins Allergy from Verified 10/27/22 15:56 childhood Consultations 10/27/22 13:49 ED Decision to Admit Stat 10/27/22 14:34 Consult Neurology Routine Ordered Studies 10/27/22 12:38 CT head/brain wo con Stat FINDINGS: Brain parenchyma: There is age-related involutional change noting moderate patchy subcortical and periventricular microangiopathic disease. There is no hemorrhage, mass effect, or evidence of acute territorial ischemia by CT criteria. There are low-attenuation foci within the left basal ganglia and the right thalamus consistent with age indeterminant lacunar infarcts. Ferraro-white matter differentiation is preserved. No extra-axial fluid collection is seen. Ventricles, sulci, cisterns: Prominent secondary to involutional change. Intracranial vasculature: There is atherosclerotic calcification of the cavernous carotid arteries. Calvarium: Unremarkable. Sinuses and mastoids: The visualized paranasal sinuses are clear. The mastoid air cells are well pneumatized. Orbits: The bony orbits are grossly intact. IMPRESSION: 1. There is no hemorrhage, mass effect, or evidence of acute territorial ischemia by CT criteria. 2. There are low-attenuation foci within the left basal ganglia and the right thalamus consistent with age-indeterminate lacunar infarcts. Correlate with any prior outside imaging studies. 10/27/22 15:50 MRI Brain [MR brain wo/w con] Routine FINDINGS: Brain parenchyma: There is a 12 mm focus of restricted diffusion in the left basal ganglia. This is consistent with an acute to subacute lacunar infarct. No additional foci of restricted diffusion are seen. There is no hemorrhage or mass effect. No enhancing mass lesion is identified on the postcontrast images. There is age-related involutional change noting moderate to advanced patchy subcortical and periventricular microangiopathic disease. No extra-axial fluid collection is seen. The cerebellar tonsils are normal in configuration. Ventricles, sulci, and cisterns: Prominent secondary to involutional change. Pituitary and sella: Partially empty sella is incidentally noted. Intracranial vasculature: Normal flow voids are maintained at the skull base. Orbits: The bony orbits are grossly intact. Orbital contents are normal in appearance. Sinuses and mastoids: The paranasal sinuses are clear. There are left larger than right mastoid effusion. Calvarium: Unremarkable. Cervical cord: Partially visualized cervical spinal cord is normal in morphology and signal intensity. IMPRESSION: 1. Acute to subacute lacunar infarct in the left basal ganglia as above. 2. No additional foci of acute ischemia are identified. 3. There is no hemorrhage or mass effect. Hospital Course (1) Stroke-like symptoms: (2) History of CVA (cerebrovascular accident): (3) HTN (hypertension): (4) DM2 (diabetes mellitus, type 2): Plan 67 year old presents with CVA like symptoms; expressive aphasia, slurred speech, labile mood. admit at [facility] and Dx with CVA but no MRI or neuro consult done there. MRI pending. ON plavix and Atorva from previous CVA Dx 2018. Non insulin dependent DM, Hold anti-HTN meds for permissive HTN for now. PT/OT/ST. Strokelike symptoms: History of CVA - no new CVA (discussed w/ neurology): History of stroke 2018 inpatient hospital stay [facility]; requested records through [facility] IM Seen at [facility] on Monday10/23/2022 did not receive MRI (pt declined d/t claustrophobia) but CT suggested stroke, no neuro consult at that time Worsening increased weakness and ataxia with mood labile Head CT:There are low-attenuation foci within the left basal ganglia and the right thalamus consistent with age-indeterminate lacunar infarcts. On Plavix, asa for previous stroke and atorvastatin 40 mg p.o. daily Per records review from [facility], patient was on Lipitor 10 mg daily, and she was discharged on 40 mg daily. Current LDL 88. Continue increased dose of statin. MRI brain - 1. Acute to subacute lacunar infarct in the left basal ganglia. 2. No additional foci of acute ischemia are identified. 3. There is no hemorrhage or mass effect. Neurology consult placed - cont. ASA 81 mg daily, plavix 75 mg daily, and statin PT/OT Dysphagia screen; n.p.o. until cleared Speech therapy consult Case management for complex discharge needs; possible placement 6/9 -records from [facility] obtained and reviewed. Patient had CTA head and neck done there. Echo with bubble study not obtained, as patient wanted to be discharged home and get this test done as outpatient. Echo with bubble study ordered. CTA head per reviewed records, findings: Left vertebral artery is dominant. Basilar and bilateral internal carotid arteries are patent. The bilateral middle cerebral, anterior cerebral and posterior cerebral arteries are patent. No significant stenosis, occlusion or saccular aneurysm. Impression: No significant stenosis, occlusion or saccular aneurysm. CTA neck. Reviewed records. Findings: There is a three-vessel arch. The origin of the arch vessels are widely patent. The common carotid arteries are patent. There is calcified plaque formation of the bilateral carotid bulbs and proximal internal carotid arteries. There is less than 25% stenosis bilater ally. No occlusion. Bilateral vertebral arteries are patent. Left vertebral artery is dominant. There are degenerative changes of the cervical spine. Lungs apices are clear. Impression: Calcified plaque formation of the bilateral carotid bulbs and proximal internal carotid arteries with less than 25% stenosis bilaterally. It was recommended on her discharge from [facility] that she follows up with a Holter monitor as outpatient. It was also recommended that she follows up with neurology as outpatient. Echo (10/28/22) - LV is normal in size. There is borderline concentric LVH. LV wall motion is normal. LV is hyperdynamic. EF 65 to 70%. Grade 1 diastolic dysfunction. Aortic valve is not well visualized. There is focal calcification of the aortic valve leaflets without stenosis. Consider repeat imaging when medically appropriate. The mitral valve anatomy is normal. Interatrial septum is intact with no evidence for an atrial septal defect. Injection of contrast documented no interatrial shunt. HTN: Cont. losartan, amlodipine, and metoprolol Patient was hypertensive at [facility], and therefore she was started on Norvasc, and her home losartan was increased. Zry-oovrubc-osgyxudpa diabetes mellitus type 2: Takes metformin; hold Placed on FSBS ACHS SSI while inpatient A1c 6.7% Depression and anxiety: Takes buspirone; continue Takes venlafaxine; continue GERD: Takes pantoprazole; continue Disposition: PCP: Dr. Mario Total Time Total Time Spent Total Time Spent (In Minutes): 40 Discharge Plan Discharge Items Patient Disposition: Home - Home Health Services Reason For Visit: AMS Discharge Diagnosis: History of CVA Expressive aphasia Activity: Per Instructions section Non-emergency contact: Primary Care Provider and Neurologist Call non-emergency contact if: you have any medication questions and your symptoms worsen Follow-up/Referrals: Bebo Mario D.O. [Primary Care Provider] - Diet: Carb Consistent or DM2 and Heart Healthy Addtl Attending Provider Instructions: Follow-up with your primary care physician within 1 week. Follow-up with neurology. Take aspirin 81 mg daily, Plavix 75 mg daily, and Lipitor 40 mg daily. Also make sure to take your blood pressure medications, metoprolol, losartan, amlodipine. Recommend to monitor your blood pressure at home, and keep a log of your numbers. Discuss with your healthcare providers at your next appointment, to see if your medications need any further adjustment. It was also recommended that you have a study, Holter monitor done. Pending Studies at Discharge: No Stand-Alone Forms: My [facility] [employer], Smoking Cessation Medications and DC Order Prescriptions: New aspirin 81 mg Tablet,Delayed Release (Dr/Ec) 81 mg PO QAM Qty: 30 0RF Continued losartan 50 mg tablet 50 mg PO DAILY Rx Instructions: PER [facility] cyclobenzaprine 10 mg tablet 5 mg PO BID PRN (Reason: Muscle Spasm) atorvastatin 40 mg tablet 40 mg PO DAILY cilostazol 50 mg tablet 100 mg PO BID amlodipine 2.5 mg tablet 2.5 mg PO BID Rx Instructions: PER [facility] clopidogrel [Plavix] 75 mg tablet 75 mg PO DAILY Rx Instructions: PER [facility] pantoprazole 40 mg tablet,delayed release (DR/EC) 40 mg PO BID Rx Instructions: PER [facility] metformin 1,000 mg tablet 1,000 mg PO BID Rx Instructions: PER [facility] buspirone 10 mg tablet 10 mg PO BID metoprolol tartrate 25 mg tablet 25 mg PO BID Rx Instructions: PER [facility] venlafaxine 37.5 mg capsule,extended release 24hr 37.5 mg PO DAILY Rx Instructions: Patient states this dose. Discharge Orders: Discharge Order (Routine); Ordered 10/29/22 Ordered By: Carlin Geiger/Other Patient Handouts: Managing Type 2 Diabetes Admission Data Admit Date/Time: 10/27/22 14:34 Attending Provider: Carlin Willard Admit Provider: Conner Katz Primary Care Provider: Shelbi,Bebo F. Other Providers: Conner Katz Emile ; [facility]
--- NOTE | 2022-10-29 22:09 | Electrocardiogram Report ---
Test Reason : Blood Pressure : / mmHG Vent. Rate : 095 BPM Atrial Rate : 095 BPM P-R Int : 146 ms QRS Dur : 088 ms QT Int : 350 ms P-R-T Axes : 053 031 029 degrees QTc Int : 439 ms Normal sinus rhythm Normal ECG No previous ECGs available Confirmed by Wale Wilson ([id number]) on 10/29/2022 10:09:32 PM Referred By: REFERRED SELF Confirmed By:Wale Wilson
== END 2022-10-29 14:04 | disposition home health service (06) | DRG 93 ==
LOC: EDBD → ED 11:34 → INTOOBSV 14:34 → SUATTDRO 14:34 → 2W 14:34